=== PATIENT | male | born 1965 | race Caucasian/White ===

== ENCOUNTER → 2020-07-27 | Outpatient (CLI) | payer OTHER | END | disposition home or self-care (01) | LOC: LABPAT 13:22 | PROVIDERS: ATTEND Surgery Plastic and Reconstructive Surgery | DX: Z01.818 Encounter for other preprocedural examination (principal) | CPT/HCPCS: 93005 ==

== ENCOUNTER 2020-09-11 16:20 | Inpatient (IN) | payer OTHER ==
[2020-09-11] MEDS ORDERED: SODIUM CHLORIDE 0.9% 500 ML 500 ML IV ONE (16:44)
[2020-09-11] MEDS ORDERED: SODIUM CHLORIDE 0.9% 1,000 ML IV ONE ×2 (16:44→17:14)
[2020-09-11] MEDS ORDERED: VANCOMYCIN IV PER PHARMACY 1 EACH MISC MISCELLANE PRN (16:45)
[2020-09-11] MEDS ORDERED: PIPERACILLIN-TAZOBACTAM 3.375 GM in SODIUM CHLORIDE 0.9% 100 ML IVPB SCH (16:45)
[2020-09-11] MEDS ORDERED: PIPERACILLIN-TAZOBACTAM 3.375 GM in SODIUM CHLORIDE 0.9% 100 ML IVPB ONE (17:00)
[2020-09-11 17:06] LABS: Basophils # (A) 0.2 k/uL (0-0.2); Basophils % (A) 1 %; Eosinophils # (A) 0.4 k/uL (0-0.7); Eosinophils % (A) 2 %; HCT 40.9 % (39.0-53.0); HGB 13.9 gm/dL (13.0-17.5); Lymphocytes # (A) 1.4 k/uL (1.0-4.8); Lymphocytes % (A) 6 %; MCH 29.9 pg (25.0-35.0); MCHC 33.9 g/dL (31.0-37.0); MCV 88.3 fL (80.0-100.0); Mean Platelet Volume 6.5; Monocytes % (A) 5 %; Neutrophils % (A) 86 %; Platelet Count 451 k/uL (150-450); RBC 4.63 m/uL (4.30-5.90); RDW 11.7 % (11.5-15.5); WBC 22.2 k/uL (3.8-10.6)
--- NOTE | 2020-09-11 17:14 | ED ---
Lower Extremity Injury HPI - General Chief Complaint: Extremity Injury, Lower Stated Complaint: foot injury Time Seen by Provider: 09/11/20 16:35 Source: patient Mode of arrival: ambulatory Limitations: no limitations - History of Present Illness Initial Comments: 55-year-old newly diagnosed diabetic presenting to the ER today for chief complaint of right great toe pain. Patient states 2 weeks ago he stubbed his toe he states he is pretty sure he broke it. Patient states a week later he noticed it was black. He states the past week the blackness has been increasing it's been draining and has a very spell swelling on her. Patient states is also had body aches and chills. Patient was unsure if he had a fever remaining review of systems negative upon arrival patient does not appear in distress nor toxic but is febrile with an elevated heart rate. - Related Data Home Medications Medication Instructions Recorded Confirmed Atorvastatin Calcium [Lipitor] 20 mg PO HS 09/11/20 09/11/20 Multivitamins, Thera [Multivitamin 1 tab PO DAILY 09/11/20 09/11/20 (formulary)] Vitamin B-12 (Unknown Strength) 1 tab PO DAILY 09/11/20 09/11/20 Zinc 50 mg PO DAILY 09/11/20 09/11/20 Allergies Allergy/AdvReac Type Severity Reaction Status Date / Time Latex, Natural Rubber Allergy Swelling Verified 09/11/20 17:46 Review of Systems ROS Statement: Those systems with pertinent positive or pertinent negative responses have been documented in the HPI. ROS Other: All systems not noted in ROS Statement are negative. Past Medical History Past Medical History: Diabetes Mellitus, Hyperlipidemia History of Any Multi-Drug Resistant Organisms: None Reported Past Surgical History: Ear Surgery, Hernia Repair Past Psychological History: No Psychological Hx Reported Smoking Status: Former smoker Past Alcohol Use History: Occasional Past Drug Use History: None Reported General Exam - General Exam Comments Initial Comments: General: The patient is awake and alert, in no distress Eye: +3 mm pupils are equal, round and reactive to light, extra-ocular movements are intact. No nystagmus. There is normal conjunctiva bilaterally. No signs of icterus. Ears, nose, mouth and throat: There are moist mucous membranes and no oral lesions. Neck: The neck is supple, there is no tenderness or JVD. Cardiovascular: There is a regular rate and rhythm. No murmur, rub or gallop is appreciated. Respiratory: Lungs are clear to auscultation, respirations are non-labored, breath sounds are equal. No wheezes, stridor, rales, or rhonchi. Gastrointestinal: Soft, non-distended, non-tender abdomen without masses or organomegaly noted. There is no rebound or guarding present Musculoskeletal: Normal ROM, no tenderness. Strength 5/5. Sensation intact. Radial and DP pulses equal bilaterally 2+. Neurological: A&O x 3. CN II-XII intact grossly, There are no obvious motor or sensory deficits. Coordination appears grossly intact. Speech is normal. Skin: Skin is warm and dry. right great toe is black, foul smelling, wet, dif fuse redness of adjacent foot Psychiatric: Cooperative, appropriate mood & affect, normal judgment. Limitations: no limitations Course Vital Signs 09/11/20 16:31 Temperature 101.9 F H Pulse Rate 110 H Respiratory 18 Rate Blood Pressure 194/91 O2 Sat by Pulse 96 Oximetry Medical Decision Making - Medical Decision Making 55yo with obvious wet gangrene. XR consistent with necrosis, xr inconclusive for osteomyelitis although this is suspected given clinical appearance. Pt agreeable to admission for IV antibiotics. Vascular and infectious disease on consult. Zosyn and vancomycin running. Dr. Saenz agreeable to care plan. Ventricular rate 109 bpm, IA interval 132 ms, QRS ration 80 ms, QT/QTC 3:30/444 ms. Sinus tachycardia premature supraventricular complexes. No ST elevation or depression is appreciated. - Lab Data Result diagrams: 09/11/20 17:00 09/11/20 17:50 Lab Results 09/11/20 09/11/20 09/11/20 Range/Units 17:00 17:50 Unknown WBC 22.2 H (3.8-10.6) k/uL RBC 4.63 (4.30-5.90) m/uL Hgb 13.9 (13.0-17.5) gm/dL Hct 40.9 (39.0-53.0) % MCV 88.3 (80.0-100.0) fL MCH 29.9 (25.0-35.0) pg MCHC 33.9 (31.0-37.0) g/dL RDW 11.7 (11.5-15.5) % Plt Count 451 H (150-450) k/uL MPV 6.5 Neutrophils % 86 % Lymphocytes % 6 % Monocytes % 5 % Eosinophils % 2 % Basophils % 1 % Neutrophils # 19.0 H (1.3-7.7) k/uL Lymphocytes # 1.4 (1.0-4.8) k/uL Monocytes # 1.0 (0-1.0) k/uL Eosinophils # 0.4 (0-0.7) k/uL Basophils # 0.2 (0-0.2) k/uL Sodium 128 L (137-145) mmol/L Potassium 5.0 (3.5-5.1) mmol/L Chloride 97 L (98-107) mmol/L Carbon Dioxide 25 (22-30) mmol/L Anion Gap 6 mmol/L BUN 17 (9-20) mg/dL Creatinine 0.72 (0.66-1.25) mg/dL Est GFR (CKD-EPI)AfAm >90 (>60 ml/min/1.73 sqM) Est GFR (CKD-EPI)NonAf >90 (>60 ml/min/1.73 sqM) Glucose 323 H (74-99) mg/dL Plasma Lactic Acid Lee 1.0 (0.7-2.0) mmol/L Calcium 7.9 L (8.4-10.2) mg/dL Magnesium 1.8 (1.6-2.3) mg/dL Total Bilirubin 0.6 (0.2-1.3) mg/dL AST 25 (17-59) U/L ALT 31 (4-49) U/L Alkaline Phosphatase 93 (38-126) U/L Total Protein 6.4 (6.3-8.2) g/dL Albumin 3.1 L (3.5-5.0) g/dL Disposition Clinical Impression: Gangrene, Fever, Leukocytosis Disposition: ADMITTED IP TO THIS [facility] Condition: Stable Is patient prescribed a controlled substance at d/c from ED?: No Referrals: Leonel Rm DO [Primary Care Provider] - 1-2 days Time of Disposition: 18:10 Decision to Admit Reason: Admit from EC Decision Date: 09/11/20 Decision Time: 18:10
--- NOTE | 2020-09-11 17:21 | XR ---
EXAMINATION TYPE: XR foot complete RT gangrene first digit DATE OF EXAM: 09/11/2020 COMPARISON: NONE HISTORY: Gangrene first digit TECHNIQUE: 3 views FINDINGS: There is soft tissue air at the distal phalanx of the big toe. I see no definite bone destr uction. Metatarsals are intact. There is Achilles calcaneal spurring. There is soft tissue swelling o f the forefoot. IMPRESSION: Soft tissue air and soft tissue swelling consistent with necrosis. No definite sign of os teomyelitis.
[2020-09-11] MEDS ORDERED: VANCOMYCIN 1,750 MG in SODIUM CHLORIDE 0.9% 500 ML 500 ML IVPB ONE (17:30)
[2020-09-11] MEDS ORDERED: NALOXONE 0.4 MG/ML 1 ML VIAL IV PRN (17:33)
[2020-09-11] MEDS ORDERED: MORPHINE SULFATE 4 MG/ML SYRINGE IV PRN (17:33)
[2020-09-11] MEDS: SODIUM CHLORIDE 0.9% 1,000 ML IV SCH ×2 (17:49→23:54)
[2020-09-11] MEDS: ACETAMINOPHEN TAB 325 MG TAB PO PRN ×2 (17:53→23:59)
[2020-09-11 18:07] LABS: ALT 31 U/L (4-49); AST 25 U/L (17-59); African American GFR (CKD) >90 (>60 ml/min/1.73 sqM); Albumin 3.1 g/dL (3.5-5.0); Alkaline Phosphatase 93 U/L (38-126); Anion Gap 6 mmol/L; Blood Urea Nitrogen 17 mg/dL (9-20); Calcium 7.9 mg/dL (8.4-10.2); Carbon Dioxide 25 mmol/L (22-30); Chloride 97 mmol/L (98-107); Glucose 323 mg/dL (74-99); Magnesium 1.8 mg/dL (1.6-2.3); Non-African American GFR(CKD) >90 (>60 ml/min/1.73 sqM); Sodium 128 mmol/L (137-145); Total Bilirubin 0.6 mg/dL (0.2-1.3); Total Protein 6.4 g/dL (6.3-8.2)
[2020-09-11] MEDS ORDERED: INSULIN REGULAR 100 UNIT/ML VIAL SQ ONE (18:08)
[2020-09-11 19:04] LABS: Glucose,Whole Blood 291 mg/dL (75-99)
[2020-09-11] MEDS: ATORVASTATIN 20 MG TAB PO SCH (21:58)
[2020-09-11] MEDS: HEPARIN SODIUM,PORCINE 5,000 UNIT/ML 1 ML VIAL SQ SCH (22:08)
[2020-09-11] MEDS: FAMOTIDINE 20 MG/2 ML VIAL IV SCH (22:08)
[2020-09-11] MEDS: PIPERACILLIN-TAZOBACTAM 3.375 GM in SODIUM CHLORIDE 0.9% 100 ML IVPB SCH (23:53)
[2020-09-12] MEDS: VANCOMYCIN 1,750 MG in SODIUM CHLORIDE 0.9% 500 ML 500 ML IVPB SCH ×2 (04:26→10:29)
[2020-09-12 07:14] LABS: Basophils # (A) 0.1 k/uL (0-0.2); Basophils % (A) 0 %; Eosinophils # (A) 0.2 k/uL (0-0.7); Eosinophils % (A) 1 %; HCT 36.8 % (39.0-53.0); HGB 12.3 gm/dL (13.0-17.5); Lymphocytes # (A) 1.8 k/uL (1.0-4.8); Lymphocytes % (A) 9 %; MCH 30.1 pg (25.0-35.0); MCHC 33.4 g/dL (31.0-37.0); MCV 90.1 fL (80.0-100.0); Mean Platelet Volume 6.5; Monocytes # (A) 1.1 k/uL (0-1.0); Monocytes % (A) 6 %; Neutrophils # (A) 16.3 k/uL (1.3-7.7); Neutrophils % (A) 83 %; Platelet Count 382 k/uL (150-450); RBC 4.08 m/uL (4.30-5.90); RDW 11.7 % (11.5-15.5); WBC 19.7 k/uL (3.8-10.6)
[2020-09-12] MEDS: HEPARIN SODIUM,PORCINE 5,000 UNIT/ML 1 ML VIAL SQ SCH ×2 (07:54→21:41)
[2020-09-12] MEDS: FAMOTIDINE 20 MG/2 ML VIAL IV SCH (07:55)
[2020-09-12] MEDS: CYANOCOBALAMIN 500 MCG TAB PO SCH (07:55)
[2020-09-12] MEDS: PIPERACILLIN-TAZOBACTAM 3.375 GM in SODIUM CHLORIDE 0.9% 100 ML IVPB SCH ×2 (07:56→15:12)
[2020-09-12] MEDS: SODIUM CHLORIDE 0.9% 1,000 ML IV SCH ×2 (07:58→14:13)
[2020-09-12 09:58] LABS: African American GFR (CKD) 112.6 (60.0-200.0); Anion Gap 9.4 mmol/L (4.00-12.00); BUN/Creat Ratio 15.56 Ratio (12.00-20.00); Calcium 8.2 mg/dL (8.7-10.3); Carbon Dioxide 27.6 mmol/L (21.6-31.8); Non-African American GFR(CKD) 97.2 (60.0-200.0); Potassium 4.6 mmol/L (3.5-5.5)
[2020-09-12] MEDS: HYDROcodone/APAP 5-325MG 1 EACH TAB PO PRN (10:30)
[2020-09-12] MEDS ORDERED: ALPRAZolam 0.25 MG TAB PO PRN (13:58)
[2020-09-12] MEDS ORDERED: TEMAZEPAM 15 MG CAP PO PRN (13:58)
[2020-09-12] MEDS ORDERED: HYDROmorphone 0.5 MG/0.5 ML SYRINGE IVP PRN (13:58)
[2020-09-12] MEDS: KETOROLAC 15 MG/ML 1 ML VIAL IVP PRN ×2 (14:29→21:40)
[2020-09-12 14:58] LABS: Appearance,Urine Clear (Clear); Bilirubin,Urine Negative (Negative); Blood,Urine Negative (Negative); Color,Urine Light Yellow; Glucose,Urine (UA) 4+ (Negative); Ketones,Urine 1+ (Negative); Leukocyte Esterase,Urine Negative (Negative); Nitrite,Urine Negative (Negative); Protein,Urine Negative (Negative); Specific Gravity,Urine 1.015 (1.001-1.035); Urobilinogen,Urine <2.0 mg/dL (<2.0)
--- NOTE | 2020-09-12 15:24 | HP ---
HISTORY AND PHYSICAL DATE OF SERVICE: 09/12/2020 CHIEF COMPLAINT: Pain and swelling of the right big toe. HISTORY OF PRESENT ILLNESS: This 55-year-old gentleman with a past medical history of diabetes mellitus, hyperlipidemia, history of ear surgery, hernia repair, being followed by Dr. Leonel Rm in the outpatient setting, was not feeling well for the last one month. About a month ago, the patient stubbed his right great toe while doing some outside yard work, and the patient thought that the toe was broken, but subsequently the patient noticed some black discoloration with foul-smelling discharge. Because of the increasing difficulties, the patient came to [facility] and was admitted for further evaluation and treatment. X-rays show no evidence of any fractures at this time. The patient also had elevated white count. The patient has not taken any antibiotics so far. Evaluation by Vascular Surgery as well as Infectious Disease is ongoing at this time. There is no history of any fever, rigor or chills. No history of headache, loss of consciousness, seizures. PAST MEDICAL HISTORY: Diabetes mellitus, hyperlipidemia, history of ear surgery, history of hernia surgery. MEDICATIONS: Zinc, multivitamins and Lipitor. ALLERGIES: LATEX. FAMILY HISTORY: No history of heart disease or strokes in the family. SOCIAL HISTORY: Occasional alcohol intake and history of previous smoking. REVIEW OF SYSTEMS: ENT: No diminished hearing. No diminished vision. CARDIOVASCULAR SYSTEM: No angina, palpitations. RESPIRATORY SYSTEM: No cough, hemoptysis. GI: No nausea, vomiting. : No dysuria or retention. NERVOUS SYSTEM: No numbness, weakness. ALLERGY/IMMUNOLOGY: No asthma, hayfever. MUSCULOSKELETAL: As mentioned earlier. HEMATOLOGY/ONCOLOGY: No history of anemia. ENDOCRINE: Diabetes mellitus. CONSTITUTIONAL: As mentioned earlier. DERMATOLOGY: As mentioned earlier. RHEUMATOLOGY: Negative. PSYCHIATRY: As mentioned earlier. PHYSICAL EXAMINATION: Patient alert and oriented x3. Pulse 90, blood pressure is 153/78, respiration 18, temperature 98.1, pulse ox 96% on room air. HEENT: Conjunctivae normal. Oral mucosa moist. NECK: No jugular venous distention. No carotid bruit. No lymph node enlargement. CARDIOVASCULAR SYSTEM: S1, S2 muffled. No S3. No S4. RESPIRATORY SYSTEM: Breath sounds diminished at the bases. No rhonchi. No crackles. ABDOMEN: Soft, non-tender. No mass palpable. LEGS: Right foot with significant erythema, swelling and gangrenous changes, foul- smelling, indicative of diabetic gangrene. The pulses are diminished bilaterally. NERVOUS SYSTEM: Higher functions as mentioned earlier. Moves all 4 limbs. No focal motor deficit. LYMPHATICS: No lymph node palpable in neck, axillae or groin. SKIN: As mentioned earlier. JOINTS: No active deforming arthropathy. LABS: Labs at this time show WBC 22.2, platelets are 451. Sodium 128, potassium 5 and glucose 323, 291, 258. ASSESSMENT: 1. 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 2. Increased white count. 3. Increased platelets. 4. Hyponatremia. 5. History of diabetes mellitus, type 2. 6. Hyperlipidemia. 7. History of hernia repair. 8. Remote history of nicotine dependence. 9. FULL CODE. RECOMMENDATIONS AND DISCUSSION: In this 55-year-old gentleman who presented with multiple complex medical issues, we will monitor the patient closely, continue the current medications, continue with symptomatic treatment. Broad-spectrum IV antibiotics have been initiated. Obtain the cultures. Surgical and Infectious disease evaluations. I would also recommend initiating Lantus and better control of the diabetes mellitus. The hemoglobin A1c is unknown at this time. Will resume the home medication. Prognosis guarded. DVT prophylaxis. See orders for further details. Further recommendations to follow. A copy of this dictation is being forwarded to Dr. Rm, who is the primary physician. MMODL / IJN: [id number] /
[2020-09-12] MEDS: AMPICILLIN-SULBACTAM 3 GM in SODIUM CHLORIDE 0.9% 100 ML IVPB SCH (16:44)
--- NOTE | 2020-09-12 17:20 | P.GSCN ---
History of Present Illness Consult date: 09/12/20 History of present illness: Patient is a 55-year-old male who has a new onset diagnosis of diabetes very recently. He has not seen a doctor in the past under any regularity, but has recently for preoperative clearance for hernia. In the past month or so he began having issues after stubbing his right great toe while woodcutting. He states that it initially improved and he thought there was going to be further improvement but then realized the wound was worsening and turning black. He had pain with this. He denies any fevers, chills, nausea, vomiting or issues otherwise currently. Of note, also in his preoperative workup and evaluation for this outpatient hernia repair, he had an EKG which showed some abnormalities which then instigated an echo and stress test that were scheduled for the near future. He has not had these done yet. He denies any chest pains with work. He is able to perform activity without any chest pains or shortness of breath Past Medical History Past Medical History: Diabetes Mellitus, Hyperlipidemia History of Any Multi-Drug Resistant Organisms: None Reported Past Surgical History: Ear Surgery, Hernia Repair Additional Past Surgical History / Comment(s): 3 left ear surgeries (tubes put in and eardrum repair) Past Anesthesia/Blood Transfusion Reactions: No Reported Reaction Past Psychological History: No Psychological Hx Reported Smoking Status: Former smoker Past Alcohol Use History: Occasional Past Drug Use History: None Reported Medications and Allergies Home Medications Medication Instructions Recorded Confirmed Type Atorvastatin Calcium [Lipitor] 20 mg PO HS 09/11/20 09/11/20 History Multivitamins, Thera [Multivitamin 1 tab PO DAILY 09/11/20 09/11/20 History (formulary)] Vitamin B-12 (Unknown Strength) 1 tab PO DAILY 09/11/20 09/11/20 History Zinc 50 mg PO DAILY 09/11/20 09/11/20 History Allergies Allergy/AdvReac Type Severity Reaction Status Date / Time Latex, Natural Rubber Allergy Swelling Verified 09/11/20 17:46 Surgical - Exam Vital Signs Temp Pulse Resp BP Pulse Ox 101.9 F H 110 H 18 194/91 96 09/11/20 16:31 09/11/20 16:31 09/11/20 16:31 09/11/20 16:31 09/11/20 16:31 Gen. is a pleasant cooperative male in no acute distress. HEENT is normocephalic, atraumatic, extraocular motion intact. Heart is regular in rate and rhythm at this time. Lungs are clear bilaterally. Abdomen is soft, non tender and nondistended, obese, some shifting dullness. Extremities show no clubbing, cyanosis or edema. His right great toe is bulbous with areas of gangrene and drainage. He maintains palpable radial, femoral, dorsalis pedis and posterior tibial pulses bilaterally. Normal mood and affect. Cranial nerves II through XII grossly intact Results X-rays reviewed. - Labs 09/12/20 06:32 09/12/20 06:32 Abnormal Lab Results - Last 24 Hours (Table) 09/11/20 09/11/20 09/12/20 Range/Units 17:50 19:02 06:32 WBC 19.7 H (3.8-10.6) k/uL RBC 4.08 L (4.30-5.90) m/uL Hgb 12.3 L (13.0-17.5) gm/dL Hct 36.8 L (39.0-53.0) % Neutrophils # 16.3 H (1.3-7.7) k/uL Monocytes # 1.1 H (0-1.0) k/uL Sodium 128 L (137-145) mmol/L Chloride 97 L (98-107) mmol/L Glucose 323 H (74-99) mg/dL POC Glucose (mg/dL) 291 H (75-99) mg/dL Calcium 7.9 L (8.4-10.2) mg/dL Albumin 3.1 L (3.5-5.0) g/dL Urine Glucose (UA) (Negative) Urine Ketones (Negative) 09/12/20 09/12/20 Range/Units 06:32 14:45 WBC (3.8-10.6) k/uL RBC (4.30-5.90) m/uL Hgb (13.0-17.5) gm/dL Hct (39.0-53.0) % Neutrophils # (1.3-7.7) k/uL Monocytes # (0-1.0) k/uL Sodium 133 L (137-145) mmol/L Chloride (98-107) mmol/L Glucose 258 H (74-99) mg/dL POC Glucose (mg/dL) (75-99) mg/dL Calcium 8.2 L (8.4-10.2) mg/dL Albumin (3.5-5.0) g/dL Urine Glucose (UA) 4+ H (Negative) Urine Ketones 1+ H (Negative) Diabetes panel 09/11/20 09/12/20 Range/Units 17:50 06:32 Sodium 128 L 133 L (137-145) mmol/L Potassium 5.0 4.6 (3.5-5.1) mmol/L Chloride 97 L 96 (98-107) mmol/L Carbon Dioxide 25 27.6 (22-30) mmol/L BUN 17 14.0 (9-20) mg/dL Creatinine 0.72 0.9 (0.66-1.25) mg/dL Glucose 323 H 258 H (74-99) mg/dL Calcium 7.9 L 8.2 L (8.4-10.2) mg/dL AST 25 (17-59) U/L ALT 31 (4-49) U/L Alkaline Phosphatase 93 (38-126) U/L Total Protein 6.4 (6.3-8.2) g/dL Albumin 3.1 L (3.5-5.0) g/dL Calcium panel 09/11/20 09/12/20 Range/Units 17:50 06:32 Calcium 7.9 L 8.2 L (8.4-10.2) mg/dL Albumin 3.1 L (3.5-5.0) g/dL Pituitary panel 09/11/20 09/12/20 Range/Units 17:50 06:32 Sodium 128 L 133 L (137-145) mmol/L Potassium 5.0 4.6 (3.5-5.1) mmol/L Chloride 97 L 96 (98-107) mmol/L Carbon Dioxide 25 27.6 (22-30) mmol/L BUN 17 14.0 (9-20) mg/dL Creatinine 0.72 0.9 (0.66-1.25) mg/dL Glucose 323 H 258 H (74-99) mg/dL Calcium 7.9 L 8.2 L (8.4-10.2) mg/dL Adrenal panel 09/11/20 09/12/20 Range/Units 17:50 06:32 Sodium 128 L 133 L (137-145) mmol/L Potassium 5.0 4.6 (3.5-5.1) mmol/L Chloride 97 L 96 (98-107) mmol/L Carbon Dioxide 25 27.6 (22-30) mmol/L BUN 17 14.0 (9-20) mg/dL Creatinine 0.72 0.9 (0.66-1.25) mg/dL Glucose 323 H 258 H (74-99) mg/dL Calcium 7.9 L 8.2 L (8.4-10.2) mg/dL Total Bilirubin 0.6 (0.2-1.3) mg/dL AST 25 (17-59) U/L ALT 31 (4-49) U/L Alkaline Phosphatase 93 (38-126) U/L Total Protein 6.4 (6.3-8.2) g/dL Albumin 3.1 L (3.5-5.0) g/dL Assessment and Plan Assessment: #1 right great toe infection #2 right great toe gangrene #3 diabetes #4 reportedly abnormal EKG previously Plan: The patient has recently eaten and given his overall picture and clinical stability we'll plan to make him nothing by mouth after midnight and amputate great toe tomorrow morning. He is to maintain antibiotics. We will obtain a deep space culture at that time. Also we've asked that cardiology evaluate the patient, given his recent cardiac issues we will plan to perform the surgery under monitored anesthesia care with a local digital block rather than general anesthesia. Risks and benefits were discussed with the patient. He seemingly understands and is willing to proceed as such. All questions are answered.
[2020-09-12 17:34] LABS: Glucose,Whole Blood 320 mg/dL (75-99)
[2020-09-12] MEDS: INSULIN ASPART (NovoLOG) 100 UNIT/ML VIAL SQ SCH ×2 (17:43→21:41)
[2020-09-12 19:39] LABS: Glucose,Whole Blood 445 mg/dL (75-99)
[2020-09-12] MEDS ORDERED: INSULIN ASPART (NovoLOG) 100 UNIT/ML VIAL SQ ONE (21:09)
--- NOTE | 2020-09-12 21:12 | CONS ---
CONSULTATION DATE OF SERVICE: 09/12/2020 REASON FOR CONSULTATION: Right big toe diabetic foot infection. HISTORY OF PRESENT ILLNESS: The patient is a 55-year-old male with a past medical history significant for diabetes mellitus. This patient apparently stubbed his right big toe when he was cutting wood about 2 weeks ago. The patient has been using some bandages at home; however, for the last few days the patient noticed his toe turning black. The patient does have underlying diabetic neuropathy; hence denies significant pain to the toe. The patient did have mild foul-smelling drainage from it. The patient denies high-grade fever. The patient mentioned he was on some oral antibiotic; however, he was not sure about the name. But that was without any improvement. With these symptoms, the patient presented to the hospital. On arrival in the ER the patient did have a fever of 101.9 degrees Fahrenheit. The patient was tachycardic and he had a white count of 22.2. The patient's kidney function showed a creatinine of 0.9. Liver enzymes were normal. He did have a UA that was negative. The patient had x-rays of the right foot big toe which showed soft tissue air and soft tissue swelling consistent with necrosis. No definite sign of osteomyelitis. The patient was started on vancomycin and Zosyn and admitted to the hospital. Infectious Disease was consulted for further management of antibiotic therapy. REVIEW OF SYSTEMS: Positive points have been mentioned in the HPI. Rest of the systems negative. PAST MEDICAL HISTORY: Diabetes mellitus, hyperlipidemia. PAST SURGICAL HISTORY: Hernia repair. SOCIAL HISTORY: Remote history of smoking. Occasionally drinks. No drug use. FAMILY HISTORY: No pertinent findings were noted. ALLERGIES: LATEX and NATURAL RUBBER. MEDICATIONS: The patient is currently on Tylenol, [place], Xanax, Lipitor, Pepcid, heparin, Dilaudid, Toradol, vancomycin, Pharmacy to dose, Zosyn, Restoril and zinc sulfate. PHYSICAL EXAMINATION: Blood pressure 153/78, pulse of 90, temperature 98.1. T-max 101. He is 96% on room air. General description is a middle-aged male lying in bed in no distress. No tachypnea or accessory muscle of respiration use. HEENT: Examination shows no pallor or scleral icterus. Oral mucous membrane is dry. No pharyngeal erythema or thrush. NECK: Trachea is central. No thyromegaly. LUNGS: Unlabored breathing. Clear to auscultation anteriorly. No wheeze or crackle. HEART: S1, S2. Regular rate and rhythm. No added sound. ABDOMEN: Soft. No tenderness. No guarding or rigidity. EXTREMITIES: No edema of the feet. Examination of the big toe on the right shows gangrenous changes with black swelling, minimal redness and mild foul-smelling. NEUROLOGICAL: Patient is awake, alert, oriented x3. Mood and affect normal. LABS: Hemoglobin is 12.3, white count 19.7. Admission white count was 22.2 with a BUN of 14, creatinine 0.90. Electrolytes have been normal. Urine is negative. X-ray report as mentioned above. DIAGNOSTIC IMPRESSION AND PLAN: Patient admitted to hospital with sepsis in this patient who did have fever, elevated white count, tachycardia. Source is right diabetic foot infection that started as a trauma 2 weeks ago, now with evidence of wet gangrene. Will need to cover for the polymicrobial esvin usually associated with these levels of infection in this patient failing outpatient oral antibiotic therapy. PLAN: 1. Discontinue the Zosyn and vancomycin to decrease risk of nephrotoxicity. 2. We will start the patient on Unasyn 3 grams q.6 hours. 3. Await vascular surgery evaluation for debridement and deep cultures, both aerobic and anaerobic. 4. Will follow his clinical condition and culture to further adjust medication if needed. Thank you for this consultation. Will follow this patient along with you. MMODL / IJN: [id number] /
[2020-09-12] MEDS: FAMOTIDINE 20 MG TAB PO SCH (21:41)
[2020-09-12] MEDS: ATORVASTATIN 20 MG TAB PO SCH (21:41)
[2020-09-13] MEDS: AMPICILLIN-SULBACTAM 3 GM in SODIUM CHLORIDE 0.9% 100 ML IVPB SCH ×4 (00:10→17:36)
[2020-09-13] MEDS: SODIUM CHLORIDE 0.9% 1,000 ML IV SCH ×3 (00:13→17:36)
[2020-09-13 01:24] LABS: Hemoglobin A1C 12.3 % (4.0-6.0)
[2020-09-13] MEDS: ACETAMINOPHEN TAB 325 MG TAB PO PRN ×2 (04:57→11:09)
[2020-09-13] MEDS: KETOROLAC 15 MG/ML 1 ML VIAL IVP PRN (05:32)
[2020-09-13 06:01] LABS: Basophils # (A) 0.1 k/uL (0-0.2); Basophils % (A) 0 %; Eosinophils # (A) 0.3 k/uL (0-0.7); Eosinophils % (A) 1 %; HCT 35.9 % (39.0-53.0); HGB 11.9 gm/dL (13.0-17.5); Lymphocytes # (A) 1.5 k/uL (1.0-4.8); Lymphocytes % (A) 8 %; MCH 29.1 pg (25.0-35.0); MCHC 33.1 g/dL (31.0-37.0); MCV 87.8 fL (80.0-100.0); Mean Platelet Volume 6.6; Monocytes % (A) 5 %; Neutrophils % (A) 83 %; Platelet Count 394 k/uL (150-450); RBC 4.09 m/uL (4.30-5.90); RDW 11.6 % (11.5-15.5)
[2020-09-13 07:14] LABS: Glucose,Whole Blood 250 mg/dL (75-99)
[2020-09-13] MEDS: INSULIN ASPART (NovoLOG) 100 UNIT/ML VIAL SQ SCH ×4 (08:16→21:52)
[2020-09-13] MEDS ORDERED: LIDOCAINE 1% INJ 10MG/ML (20 ML MDV) SQ ONE ×2 (09:13)
[2020-09-13] MEDS ORDERED: PROPOFOL 10 MG/ML 20 ML VIAL IV ONE (09:15)
[2020-09-13] MEDS ORDERED: SODIUM CHLORIDE 0.9% 1,000 ML IV ONE ×2 (09:15→10:45)
[2020-09-13] MEDS ORDERED: fentaNYL (PF) 50 MCG/ML 2 ML AMP ONE (09:15)
[2020-09-13] MEDS ORDERED: MIDAZOLAM 2 MG/2 ML VIAL ONE (09:15)
[2020-09-13] MEDS ORDERED: KETAMINE 10 MG/ML 20 ML VIAL ONE (09:15)
[2020-09-13] MEDS ORDERED: VANCOMYCIN TROUGH DUE 1 EACH MISC MISCELLANE ONE (10:00)
[2020-09-13 10:17] LABS: African American GFR (CKD) 112.6 (60.0-200.0); Anion Gap 5.8 mmol/L (4.00-12.00); BUN/Creat Ratio 13.33 Ratio (12.00-20.00); Calcium 8.1 mg/dL (8.7-10.3); Carbon Dioxide 30.2 mmol/L (21.6-31.8); Non-African American GFR(CKD) 97.2 (60.0-200.0); Potassium 4.2 mmol/L (3.5-5.5)
[2020-09-13 10:20] LABS: Glucose,Whole Blood 231 mg/dL (75-99)
[2020-09-13] MEDS: FAMOTIDINE 20 MG TAB PO SCH ×2 (11:09→20:19)
[2020-09-13] MEDS: HEPARIN SODIUM,PORCINE 5,000 UNIT/ML 1 ML VIAL SQ SCH ×2 (11:09→20:20)
[2020-09-13] MEDS: ZINC SULFATE 220 MG CAP PO SCH (11:10)
[2020-09-13] MEDS: CYANOCOBALAMIN 500 MCG TAB PO SCH (11:10)
[2020-09-13] MEDS: MULTIVITAMINS, THERA 1 EACH TAB PO SCH (11:10)
--- NOTE | 2020-09-13 11:25 | P.CRDCN ---
History of Present Illness Consult date: 09/13/20 Requesting physician: Emily Walker Reason for Consult (text): "surgery" Chief complaint: infected right great toe History of present illness: A pleasant 55-year-old gentleman with history of diabetes who was recently seen in our office by Dr. Martínez for preoperative evaluation prior to undergoing hernia surgery with Dr. Lopez. A few weeks ago he stubbed his toe O working outside. He presented to the emergency department yesterday due to worsening pain and symptoms of infection with foul-smelling drainage. Breasts see the patient in consultation for preoperative evaluation. EKG on admission showed sinus tachycardia with immature atrial contractions. The patient did undergo r ight toe amputation this morning with a block and conscious sedation. He is feeling well postoperatively. Blood pressure has been elevated during admission but has been well controlled in the 120s to 140 at home. He is currently afebrile but did have a temperature of 101.9 on admission. Recent laboratory values showed a white blood cell count 18,000. Hemoglobin 11.9 and normal renal function. Glucose has been elevated. He's had no points of chest discomfort, shortness of breath, cough, lightheadedness, dizziness, palpitations or lower extremity edema. He has a wound VAC in place to the surgical site. He is anticipating discharge home on Thursday. She is currently scheduled for stress test and echocardiogram in our office. Past Medical History Past Medical History: Diabetes Mellitus, Hyperlipidemia History of Any Multi-Drug Resistant Organisms: None Reported Past Surgical History: Ear Surgery, Hernia Repair Additional Past Surgical History / Comment(s): 3 left ear surgeries (tubes put in and eardrum repair) Past Anesthesia/Blood Transfusion Reactions: No Reported Reaction Past Psychological History: No Psychological Hx Reported Smoking Status: Former smoker Past Alcohol Use History: Occasional Past Drug Use History: None Reported Medications and Allergies Home Medications Medication Instructions Recorded Confirmed Type Atorvastatin Calcium [Lipitor] 20 mg PO HS 09/11/20 09/11/20 History Multivitamins, Thera [Multivitamin 1 tab PO DAILY 09/11/20 09/11/20 History (formulary)] Vitamin B-12 (Unknown Strength) 1 tab PO DAILY 09/11/20 09/11/20 History Zinc 50 mg PO DAILY 09/11/20 09/11/20 History Allergies Allergy/AdvReac Type Severity Reaction Status Date / Time Latex, Natural Rubber Allergy Swelling Verified 09/11/20 17:46 Physical Exam Vitals: Vital Signs Temp Pulse Pulse Resp BP BP Pulse Ox 09/13/20 11:14 98.4 F 88 16 173/82 96 09/13/20 10:43 82 16 147/62 97 09/13/20 10:30 83 16 96 09/13/20 10:12 97.6 F 85 16 144/69 95 09/13/20 05:37 99.5 F 90 09/13/20 04:50 98.1 F 94 16 155/80 95 09/12/20 19:11 99.2 F 99 16 168/81 97 09/12/20 13:21 98.1 F 90 18 153/78 96 Intake and Output 09/12/20 09/13/20 09/13/20 22:59 06:59 14:59 Intake Total 420 825 Output Total 40 Balance 420 785 Intake: IV 825 Oral 420 Output: Estimated Blood Loss 40 Other: Voiding Method Toilet Toilet # Voids 1 Weight 102.512 kg PHYSICAL EXAMINATION: This is a -year-old in no apparent distress at the time of my examination. VITAL SIGNS: Blood pressure , heart rate , respirations , temp . Patient is % on . HEENT: Head is atraumatic, normocephalic. Pupils are equal, round. Sclerae anicteric. Conjunctivae are clear. Mucous membranes of the mouth are moist. Neck is supple. There is no elevated jugular venous pressure. No carotid bruit is heard. CHEST EXAMINATION: Clear to auscultation bilaterally. No wheezes rales or rh onchi. Respirations even and nonlabored. HEART EXAMINATION: Heart regular, positive S1 and S2. No S3. No S4. No clicks, rubs or murmurs. ABDOMEN: Soft, nontender. Bowel sounds are heard. No organomegaly noted. EXTREMITIES: 2+ peripheral pulses with wound VAC noted to site of right great to e amputation with erythema noted in the surrounding toes and foot.. NEUROLOGIC EXAMINATION: Patient is awake, alert and oriented x3. Results 09/13/20 05:42 09/13/20 05:42 CBC 09/13/20 Range/Units 05:42 WBC 18.0 H (3.8-10.6) k/uL RBC 4.09 L (4.30-5.90) m/uL Hgb 11.9 L (13.0-17.5) gm/dL Hct 35.9 L (39.0-53.0) % Plt Count 394 (150-450) k/uL Comprehensive Metabolic Panel 09/13/20 Range/Units 05:42 Sodium 132 L (135-145) mmol/L Potassium 4.2 (3.5-5.5) mmol/L Chloride 96 (96-109) mmol/L Carbon Dioxide 30.2 (21.6-31.8) mmol/L BUN 12.0 (9.0-27.0) mg/dL Creatinine 0.9 (0.6-1.5) mg/dL Glucose 262 H (70-110) mg/dL Calcium 8.1 L (8.7-10.3) mg/dL Current Medications Generic Name Dose Route Start Last Admin Trade Name Freq PRN Reason Stop Dose Admin Acetaminophen 650 mg 09/11/20 17:33 09/13/20 11:09 Acetaminophen Tab 325 Mg Tab PO 650 mg Q6HR PRN Administration Mild Pain or Fever > 100.5 Hydrocodone Bitart/Acetaminophen 1 each 09/12/20 10:05 09/12/20 10:30 Hydrocodone/Apap 5-325mg 1 Each Tab PO 1 each Q6HR PRN Administration Pain Alprazolam 0.25 mg 09/12/20 13:58 09/12/20 21:41 Alprazolam 0.25 Mg Tab PO 0.25 mg TID PRN Administration Anxiety Atorvastatin Calcium 20 mg 09/11/20 21:00 09/12/20 21:41 Atorvastatin 20 Mg Tab PO 20 mg HS VINICIUS Administration Cyanocobalamin 500 mcg 09/12/20 09:00 09/13/20 11:10 Cyanocobalamin 500 Mcg Tab PO 500 mcg DAILY VINICIUS Administration Famotidine 20 mg 09/12/20 21:00 09/13/20 11:09 Famotidine 20 Mg Tab PO 20 mg Q12HR VINICIUS Administration Heparin Sodium (Porcine) 5,000 unit 09/11/20 21:00 09/13/20 11:09 Heparin Sodium,Porcine 5,000 Unit/Ml 1 Ml Vial SQ 5,000 unit Q12HR VINICIUS Administration Hydromorphone HCl 0.5 mg 09/12/20 13:58 Hydromorphone 0.5 Mg/0.5 Ml Syringe IVP Q6HR PRN Severe Pain Sodium Chloride 1,000 mls @ 130 mls/hr 09/11/20 16:45 09/13/20 08:16 Saline 0.9% IV 130 mls/hr .Q7H42M VINICIUS Administration Ampicillin Sodium/Sulbactam 100 mls @ 200 mls/hr 09/12/20 18:00 09/13/20 11:09 Sodium 3 gm/ Sodium Chloride IVPB 200 mls/hr Q6HR VINICIUS Administration Insulin Aspart 0 unit 09/12/20 17:30 09/13/20 08:16 Insulin Aspart (Novolog) 100 Unit/Ml Vial SQ Not Given ACHS VINICIUS Protocol Ketorolac Tromethamine 15 mg 09/12/20 10:05 09/13/20 05:32 Ketorolac 15 Mg/Ml 1 Ml Vial IVP 09/15/20 10:05 15 mg Q6HR PRN Administration Pain Multivitamins 1 each 09/13/20 09:00 09/13/20 11:10 Multivitamins, Thera 1 Each Tab PO 1 each DAILY VINICIUS Administration Naloxone HCl 0.2 mg 09/11/20 17:33 Naloxone 0.4 Mg/Ml 1 Ml Vial IV Q2M PRN Opioid Reversal Temazepam 15 mg 09/12/20 13:58 Temazepam 15 Mg Cap PO HS PRN Insomnia Zinc Sulfate 220 mg 09/13/20 09:00 09/13/20 11:10 Zinc Sulfate 220 Mg Cap PO 220 mg DAILY VINICIUS Administration Intake and Output 09/12/20 09/13/20 09/13/20 22:59 06:59 14:59 Intake Total 420 825 Output Total 40 Balance 420 785 Intake: IV 825 Oral 420 Output: Estimated Blood Loss 40 Other: Voiding Method Toilet Toilet # Voids 1 Weight 102.512 kg Patient Weight 09/14/20 06:59 Weight 102.512 kg 09/13/20 05:42 09/13/20 05:42 EKG Interpretations (text) Sinus tachycardia with PACs Assessment and Plan Assessment: #1 sepsis secondary to right great toe infection and gangrene, status post right great toe amputation, being followed by ID #2 diabetes mellitus #3 hyperlipidemia Plan: From cardiology's perspective, we will plan to complete the patient's preoperative evaluation for potential upcoming hernia repair at a later date. At this time will follow the patient on an as-needed basis. Please do not hesitate to contact us with questions. The office will contact the patient to reschedule testing to be done in our office. DIETARY TECH note has been reviewed, I agree with a documented findings and plan of care. Patient was seen and examined.
--- NOTE | 2020-09-13 11:42 | P.OP ---
Date of Procedure: 09/13/20 Preoperative Diagnosis: Right great toe gangrene Postoperative Diagnosis: Same Procedure(s) Performed: Right great toe metatarsal amputation with wound VAC negative pressure dressing placement Anesthesia: MAC, local Surgeon: Vernon Oreilly Estimated Blood Loss (ml): 40 Pathology: other (Right great toe and tissue culture) Condition: stable Disposition: floor Indications for Procedure: 55-year-old gentleman who presented to the hospital secondary to right great toe wound after injury to the area after stubbing his toe. Upon evaluation was noted that he had gangrene involving the great toe with extension of possible abscess in need of amputation. Description of Procedure: After written informed consent was obtained the patient all risks benefits and competitions were described the patient was brought to the operative suite and laid in a supine position. The area of the right foot was prepped and draped in the usual sterile fashion after appropriate anesthetic was performed per the anesthesiologist. Timeout was performed in normal fashion. Antibiotics were infused prior to any incision. A racquet incision was then created with a 10 blade scalpel at the base of the necrotic tissue at the great toe and continued circumferentially around the base of the toe. Dissection was then carried down to the metatarsal bone with electrocautery. Soft tissue was then removed from the anterior surface of the metatarsal bone with a periosteal elevator. Amputation was then completed at the metatarsal bone. Soft tissue was then removed from around the great toe and the toe was removed. There was area of abscess under the toe which was drained. All tissue was then removed and sent off for pathology as well as cultures. Hemostasis was obtained. The amputated bone was then filed with a rasp. The area was then copiously irrigated with antibiotic solution. The defect measured 9 x 5 x 4 cm in depth and was unable to be closed. Wound VAC was then placed in normal fashion. The patient all procedure well and was sent to PACU for mat very.
[2020-09-13 11:46] LABS: Glucose,Whole Blood 234 mg/dL (75-99)
[2020-09-13] MEDS: HYDROcodone/APAP 5-325MG 1 EACH TAB PO PRN ×2 (13:02→20:19)
[2020-09-13 13:10] VITALS: BMI 28.2
[2020-09-13 16:59] LABS: Glucose,Whole Blood 378 mg/dL (75-99)
[2020-09-13] MEDS: ATORVASTATIN 20 MG TAB PO SCH (20:19)
[2020-09-13 20:23] LABS: Glucose,Whole Blood 323 mg/dL (75-99)
[2020-09-13] MEDS: INSULIN DETEMIR (LEVEMIR) 100 UNIT/ML SYR SQ SCH (21:52)
[2020-09-14] MEDS: AMPICILLIN-SULBACTAM 3 GM in SODIUM CHLORIDE 0.9% 100 ML IVPB SCH ×5 (00:42→23:53)
[2020-09-14] MEDS: SODIUM CHLORIDE 0.9% 1,000 ML IV SCH ×4 (00:42→20:58)
--- NOTE | 2020-09-14 03:06 | PN ---
PROGRESS NOTE DATE OF SERVICE: 09/13/2020 This 55-year-old gentleman who was admitted with pain and swelling of the right big toe with possible osteomyelitis and gangrene, underwent right great toe metatarsal amputation with wound VAC and negative pressure dressing placement by Dr. Oreilly. The patient will be closely monitored. Patient also had elevated blood sugars also. The patient is also seen by Cardiology. PAST MEDICAL HISTORY: Reviewed. REVIEW OF SYSTEMS: CARDIOVASCULAR SYSTEM: No angina. RESPIRATORY SYSTEM: As mentioned earlier. GI: As mentioned earlier. : No dysuria. NERVOUS SYSTEM: No numbness or weakness. CURRENT MEDICATIONS: Current medications are reviewed and include: Tylenol, [place], Xanax, Unasyn, Pepcid, heparin, Dilaudid, Narcan, Restoril. PHYSICAL EXAMINATION: Patient is alert and oriented x3. The pulse is 88, blood pressure 173/82, respirations 16, temperature 98.4, pulse ox 96% on room air. HEENT: Conjunctivae normal. NECK: No jugular venous distention. CARDIOVASCULAR: S1, S2 muffled. RESPIRATORY: Breath sounds diminished at the bases. Bilateral scattered rhonchi and crackles. ABDOMEN: Soft, nontender. LEGS: Status post amputation of the right big toe. NERVOUS SYSTEM: No focal deficits. LABS: Accu-Cheks 231, 234. WBC 18. ASSESSMENT: 1. Right foot diabetic gangrene and cellulitis with possible sepsis with failure of outpatient treatment, present on admission. 2. Status post right great toe metatarsal amputation wound VAC negative pressure dressing placement. 3. Diabetes mellitus type 2 uncontrolled with hyperglycemia. 4. Increased WBC. 5. Increased platelets. 6. Hyponatremia. 7. Hyperlipidemia. 8. History of hernia repair. 9. Remote history of nicotine dependence. 10.FULL CODE. RECOMMENDATIONS AND DISCUSSION: I recommend to continue current medications, continue symptomatic treatment. Continue with broad-spectrum IV antibiotics, possibly long-term IV antibiotics with PICC line. Closely follow with Infectious Disease. Otherwise, I would also recommend Lantus insulin and Levemir and continue to monitor. Guarded prognosis. Further recommendations to follow. MMODL / IJN: [id number] /
[2020-09-14] MEDS: HYDROcodone/APAP 5-325MG 1 EACH TAB PO PRN ×2 (05:29→12:20)
[2020-09-14 06:48] LABS: Basophils % (A) 0 %; Eosinophils # (A) 0.3 k/uL (0-0.7); Eosinophils % (A) 2 %; HCT 32.6 % (39.0-53.0); Lymphocytes # (A) 2.4 k/uL (1.0-4.8); Lymphocytes % (A) 13 %; MCH 29.7 pg (25.0-35.0); MCHC 33.6 g/dL (31.0-37.0); MCV 88.4 fL (80.0-100.0); Mean Platelet Volume 6.8; Monocytes # (A) 1.1 k/uL (0-1.0); Monocytes % (A) 6 %; Neutrophils # (A) 13.8 k/uL (1.3-7.7); Neutrophils % (A) 78 %; Platelet Count 361 k/uL (150-450); RBC 3.69 m/uL (4.30-5.90); RDW 11.6 % (11.5-15.5); WBC 17.8 k/uL (3.8-10.6)
--- NOTE | 2020-09-14 07:07 | PN ---
PROGRESS NOTE DATE OF SERVICE: 09/14/2020 REASON FOR FOLLOWUP: Right big toe diabetic foot infection with wet gangrene. INTERVAL HISTORY: The patient is currently afebrile. The patient was taken to the OR, is status post amputation of the right big toe. Patient tolerated the procedure. Denies having any chest pain, shortness of breath or cough. No nausea, no vomiting. No abdominal pain, no diarrhea. PHYSICAL EXAMINATION: Blood pressure 155/70 with a pulse of 92, temperature 99.4. He is 96% on room air. General description is a middle-aged male lying in bed in no distress. RESPIRATORY SYSTEM: Unlabored breathing, clear to auscultation anteriorly. HEART: S1, S2. Regular rate and rhythm. ABDOMEN: Soft, no tenderness. Right foot is currently covered with wound VAC. LABS: Hemoglobin is 11.9, white count of 18. BUN of 12 creatinine 0.9. Local cultures currently pending. Blood culture so far negative. DIAGNOSTIC IMPRESSION AND PLAN: Patient with right big toe diabetic foot infection with wet gangrene status post amputation. Will wait for the culture to finalize to determine discharge antibiotics. Covered with Unasyn to continue and monitor his clinical course closely. MMODL / IJN: [id number] /
[2020-09-14 07:17] LABS: Glucose,Whole Blood 251 mg/dL (75-99)
[2020-09-14] MEDS: CYANOCOBALAMIN 500 MCG TAB PO SCH (08:38)
[2020-09-14] MEDS: MULTIVITAMINS, THERA 1 EACH TAB PO SCH (08:38)
[2020-09-14] MEDS: FAMOTIDINE 20 MG TAB PO SCH ×2 (08:38→20:56)
[2020-09-14] MEDS: INSULIN ASPART (NovoLOG) 100 UNIT/ML VIAL SQ SCH ×4 (08:38→20:56)
[2020-09-14] MEDS: ZINC SULFATE 220 MG CAP PO SCH (08:39)
[2020-09-14] MEDS: HEPARIN SODIUM,PORCINE 5,000 UNIT/ML 1 ML VIAL SQ SCH ×2 (08:40→20:57)
[2020-09-14 09:29] LABS: African American GFR (CKD) 112.6 (60.0-200.0); Anion Gap 3.7 mmol/L (4.00-12.00); BUN/Creat Ratio 13.33 Ratio (12.00-20.00); Calcium 7.9 mg/dL (8.7-10.3); Carbon Dioxide 29.3 mmol/L (21.6-31.8); Non-African American GFR(CKD) 97.2 (60.0-200.0); Potassium 4.1 mmol/L (3.5-5.5)
--- NOTE | 2020-09-14 10:20 | ECHOF ---
Referral Reason:surgery MEASUREMENTS -------- HEIGHT: 185.4 cm WEIGHT: 102.1 kg BP: IVSd: 1.4 cm (0.6 - 1.1) LVIDd: 4.9 cm (3.9 - 5.3) LVPWd: 1.1 cm (0.6 - 1.1) EDV(Teich): 112 ml IVSs: 1.5 cm LVIDs: 3.5 cm LVPWs: 1.6 cm %IVS Thck: 9 % ESV(Teich): 50 ml EF(Teich): 55 % %FS: 29 % SV(Teich): 62 ml RVIDd: 2.8 cm (< 3.3) LALs A4C: 5.2 cm LAAs A4C: 18.6 cm LAESV A-L A4C: 57 ml LAESV MOD A4C: 49 ml LALs A2C: 4.5 cm LAAs A2C: 15.8 cm LAESV A-L A2C: 47 ml LAESV MOD A2C: 44 ml LAESV(A-L): 55 ml LAESV Index (A-L): 24.55 ml/m Ao Diam: 3.0 cm (2.0 - 3.7) LA Diam: 3.3 cm (2.7 - 3.8) AV Cusp: 2.0 cm (1.5 - 2.6) EPSS: 0.8 cm MV E Serge: 0.81 m/s MV DecT: 145 ms MV Dec Gage: 5.6 m/s MV A Serge: 0.78 m/s MV E/A Ratio: 1.05 MV PHT: 42 ms AV Vmax: 1.39 m/s AV maxP.70 mmHg TR Vmax: 1.74 m/s TR maxP.13 mmHg RAP: 5.00 mmHg RVSP: 17.13 mmHg MV EF SLOPE: 113.98 mm/s (70 - 150) MV EXCURSION: 17.01 mm (> 18.000) FINDINGS -------- Sinus rhythm. This was a technically adequate study. The left ventricular size is normal. There is mild concentric left ventricular hypertrophy. Overa ll left ventricular systolic function is low-normal with, an EF between 50 - 55 %. The diastolic fi lling pattern is normal for the age of the patient 10.21. The right ventricle is normal in size. Normal LA size by volume 22+/-6 ml/m2. The right atrial size is normal. 5.0mg of Lumason was utilized for enhancement of images The aortic valve is trileaflet, and appears structurally normal. No aortic stenosis or regurgitation. The mitral valve is normal. There is trace mitral regurgitation. The tricuspid valve appears structurally normal. Trace tricuspid regurgitation present. Right kristen tricular systolic pressure is normal at < 35 mmHg. There is no pulmonic regurgitation present. The aortic root size is normal. IVC Not well visulized. There is no pericardial effusion. CONCLUSIONS -------- 1. There is mild concentric left ventricular hypertrophy. 2. Overall left ventricular systolic function is low-normal with, an EF between 50 - 55 %. 3. The diastolic filling pattern is normal for the age of the patient 10.21 4. Normal LA size by volume 22+/-6 ml/m2. 5. The aortic valve is trileaflet, and appears structurally normal. No aortic stenosis or regurgitati on. 6. There is trace mitral regurgitation. 7. Trace tricuspid regurgitation present. 8. There is no pericardial effusion. [employer]: Linda Carrasco RDCS
[2020-09-14 12:00] LABS: Glucose,Whole Blood 292 mg/dL (75-99)
--- NOTE | 2020-09-14 13:14 | P.PN ---
Subjective Progress Note Date: 09/14/20 Patient is evaluated in postoperative day #1. He voices no complaints. Examination revealed the foot to be nontender. The wound VAC is in place and functioning normally. Impression: #1: Status post right great toe amputation with wound VAC therapy in place. All appears well presently. #2: Continue IV antibiotics/supportive medical care. #3: Continue negative pressure wound VAC therapy. Objective - Vital Signs Vital signs: Vital Signs Temp 97.6 F 09/14/20 12:10 Pulse 90 09/14/20 12:10 Resp 20 09/14/20 12:10 BP 102/63 09/14/20 12:10 Pulse Ox 99 09/14/20 12:10 Intake & Output 09/13/20 09/14/20 09/14/20 18:59 06:59 18:59 Intake Total 825 200 Output Total 940 1000 1999 Balance -115 -800 -1999 Weight 102.512 kg Intake: IV 825 Intake, IV Titration 200 Amount Ampicillin-Sulbactam 3 gm 200 In Sodium Chloride 0.9% 100 ml @ 200 mls/hr IVPB Q6HR [facility] Rx#:[id number] Output: Urine 900 1000 1999 Estimated Blood Loss 40 Other: Voiding Method Toilet Toilet Toilet Urinal Urinal - Labs CBC & Chem 7: 09/14/20 06:27 09/14/20 06:27 Labs: Abnormal Lab Results - Last 24 Hours (Table) 09/13/20 09/13/20 09/14/20 Range/Units 16:57 20:21 06:27 WBC (3.8-10.6) k/uL RBC (4.30-5.90) m/uL Hgb (13.0-17.5) gm/dL Hct (39.0-53.0) % Neutrophils # (1.3-7.7) k/uL Monocytes # (0-1.0) k/uL Sodium 131 L (135-145) mmol/L Anion Gap 3.70 L (4.00-12.00) mmol/L Glucose 255 H (70-110) mg/dL POC Glucose (mg/dL) 378 H 323 H (75-99) mg/dL Calcium 7.9 L (8.7-10.3) mg/dL 09/14/20 09/14/20 09/14/20 Range/Units 06:27 07:16 11:58 WBC 17.8 H (3.8-10.6) k/uL RBC 3.69 L (4.30-5.90) m/uL Hgb 11.0 L (13.0-17.5) gm/dL Hct 32.6 L (39.0-53.0) % Neutrophils # 13.8 H (1.3-7.7) k/uL Monocytes # 1.1 H (0-1.0) k/uL Sodium (135-145) mmol/L Anion Gap (4.00-12.00) mmol/L Glucose (70-110) mg/dL POC Glucose (mg/dL) 251 H 292 H (75-99) mg/dL Calcium (8.7-10.3) mg/dL Microbiology - Last 24 Hours (Table) 09/13/20 10:07 Gram Stain - Preliminary Toe - Right First Tissue Culture - Preliminary 09/11/20 17:00 Blood Culture - Preliminary Blood No Growth after 48 hours 09/13/20 10:07 Anaerobic Culture - Preliminary Toe - Right First 09/13/20 10:07 Fungal Culture - Preliminary Toe - Right First
[2020-09-14 17:08] LABS: Glucose,Whole Blood 312 mg/dL (75-99)
[2020-09-14 20:02] LABS: Glucose,Whole Blood 269 mg/dL (75-99)
[2020-09-14] MEDS: ATORVASTATIN 20 MG TAB PO SCH (20:56)
[2020-09-14] MEDS: INSULIN DETEMIR (LEVEMIR) 100 UNIT/ML SYR SQ SCH (20:57)
--- NOTE | 2020-09-14 21:04 | P.PN ---
Subjective Progress Note Date: 09/14/20 This is a 55-year-old male who was recently admitted with right great toe gangrene with possible osteomyelitis and is being closely monitored. Patient underwent right great toe amputation with vascular surgery and wound vac placement. Patient currently remains on IV antibiotic therapy in the form of Unasyn while awaiting for cultures to finalize. Infectious disease following. Patient also had an echo done showing an ef of 50-55%. Patient currently denies any chest pain, shortness of breath, or palpitations. Patient is afebrile. Patient denies any nausea or vomiting and is tolerating diet. Blood sugars continue to be closely monitored and will continue with long acting along with sliding scale. Objective - Vital Signs Vital signs: Vital Signs Temp 97.6 F 09/14/20 12:10 Pulse 90 09/14/20 12:10 Resp 20 09/14/20 12:10 BP 102/63 09/14/20 12:10 Pulse Ox 99 09/14/20 12:10 Intake & Output 09/13/20 09/14/20 09/14/20 18:59 06:59 18:59 Intake Total 825 200 Output Total 940 1000 1999 Balance -115 -800 -1999 Weight 102.512 kg Intake: IV 825 Intake, IV Titration 200 Amount Ampicillin-Sulbactam 3 gm 200 In Sodium Chloride 0.9% 100 ml @ 200 mls/hr IVPB Q6HR [facility] Rx#:[id number] Output: Urine 900 1000 1999 Estimated Blood Loss 40 Other: Voiding Method Toilet Toilet Toilet Urinal Urinal - Exam Gen: This is a 55-year-old male sitting up in bed awake, alert and oriented 3, well-developed, well-nourished. Temp is 97.6F, pulse is 90, respirations are 20, blood pressure is 102/63, oxygen saturation is 99% on room air. HEENT: Head is atraumatic, normocephalic. Pupils equal, round. Sclerae is anicteric. NECK: Supple. No JVD. No lymphadenopathy. No thyromegaly. LUNGS: Breath sounds diminished at the bases with a few scattered rhonchi noted. No intercostal retractions. HEART: S1, S2 are muffled ABDOMEN: Soft. Bowel sounds are present. No masses. No tenderness. Obese EXTREMITIES: No pedal edema. No calf tenderness. Status post amputation of the right big toe with wound vac NEUROLOGICAL: Patient is awake, alert and oriented x3. Cranial nerves 2 through 12 are grossly intact. - Labs CBC & Chem 7: 09/14/20 06:27 09/14/20 06:27 Labs: Abnormal Lab Results - Last 24 Hours (Table) 09/13/20 09/13/20 09/14/20 Range/Units 16:57 20:21 06:27 WBC (3.8-10.6) k/uL RBC (4.30-5.90) m/uL Hgb (13.0-17.5) gm/dL Hct (39.0-53.0) % Neutrophils # (1.3-7.7) k/uL Monocytes # (0-1.0) k/uL Sodium 131 L (135-145) mmol/L Anion Gap 3.70 L (4.00-12.00) mmol/L Glucose 255 H (70-110) mg/dL POC Glucose (mg/dL) 378 H 323 H (75-99) mg/dL Calcium 7.9 L (8.7-10.3) mg/dL 09/14/20 09/14/20 09/14/20 Range/Units 06:27 07:16 11:58 WBC 17.8 H (3.8-10.6) k/uL RBC 3.69 L (4.30-5.90) m/uL Hgb 11.0 L (13.0-17.5) gm/dL Hct 32.6 L (39.0-53.0) % Neutrophils # 13.8 H (1.3-7.7) k/uL Monocytes # 1.1 H (0-1.0) k/uL Sodium (135-145) mmol/L Anion Gap (4.00-12.00) mmol/L Glucose (70-110) mg/dL POC Glucose (mg/dL) 251 H 292 H (75-99) mg/dL Calcium (8.7-10.3) mg/dL Microbiology - Last 24 Hours (Table) 09/13/20 10:07 Gram Stain - Preliminary Toe - Right First Tissue Culture - Preliminary 09/11/20 17:00 Blood Culture - Preliminary Blood No Growth after 48 hours 09/13/20 10:07 Anaerobic Culture - Preliminary Toe - Right First 09/13/20 10:07 Fungal Culture - Preliminary Toe - Right First Assessment and Plan Assessment: Right foot diabetic gangrene and cellulitis with possible sepsis with failure of outpatient treatment, present on admission Status post right great toe metatarsal amputation wound VAC negative pressure dressing placement Diabetes mellitus type 2, uncontrolled with hyperglycemia Increased white blood count Increased platelets Hyponatremia Hyperlipidemia History of hernia repair Remote history of nicotine dependence Full code Recommendations and discussion: Recommend to continue current medications, management, and symptomatic treatmen t. To continue with IV antibiotic therapy in the form of Unasyn while awaiting culture finalization. Case management following with the possibility of IV antibiotic therapy in the outpatient setting. Patient may possibly need a PICC line. Infectious disease is following. Continue to monitor blood sugars closely and continue with long-acting and sliding scale at this time. Due to multiple complex medical issues, prognosis is guarded. Further recommendations to follow.
[2020-09-14] MEDS: ACETAMINOPHEN TAB 325 MG TAB PO PRN (22:16)
[2020-09-14] MEDS: KETOROLAC 15 MG/ML 1 ML VIAL IVP PRN (22:16)
--- NOTE | 2020-09-14 23:01 | PN ---
PROGRESS NOTE DATE OF SERVICE: 09/14/2020 REASON FOR FOLLOWUP: Right big toe diabetic foot infection with wet gangrene. INTERVAL HISTORY: Patient is currently afebrile. The patient is breathing comfortably. The patient denies having any chest pain. No shortness of breath or cough. No nausea, vomiting, abdominal pain, and no pain to the right foot area. PHYSICAL EXAMINATION: Blood pressure 130/69 with a pulse of 90, temperature 97.6. He is 99% on room air. General description: The patient is a middle aged male lying in bed in no distress. Respiratory system: Unlabored breathing. Clear to auscultation anteriorly. Heart S1, S2. Regular rate and rhythm. The right foot is currently covered with a wound VAC. Surrounding swelling persists but no redness. LABS: Hemoglobin is 11.9, white count 17.8, creatinine 0.9. Blood culture negative. DIAGNOSTIC IMPRESSION AND PLAN: Patient with right big toe wet gangrene status post amputation. Local culture pending. Patient is covered with Unasyn. He will likely need a PICC line and short course of antibiotic therapy on discharge. Continue supportive care. MMODL / IJN: [id number] /
[2020-09-15] MEDS: SODIUM CHLORIDE 0.9% 1,000 ML IV SCH (05:52)
[2020-09-15] MEDS: AMPICILLIN-SULBACTAM 3 GM in SODIUM CHLORIDE 0.9% 100 ML IVPB SCH ×4 (05:53→23:49)
[2020-09-15 07:23] LABS: Glucose,Whole Blood 223 mg/dL (75-99)
[2020-09-15] MEDS: FAMOTIDINE 20 MG TAB PO SCH ×2 (08:45→21:09)
[2020-09-15] MEDS: CYANOCOBALAMIN 500 MCG TAB PO SCH (08:45)
[2020-09-15] MEDS: MULTIVITAMINS, THERA 1 EACH TAB PO SCH (08:45)
[2020-09-15] MEDS: INSULIN ASPART (NovoLOG) 100 UNIT/ML VIAL SQ SCH ×4 (08:46→21:10)
[2020-09-15] MEDS: HEPARIN SODIUM,PORCINE 5,000 UNIT/ML 1 ML VIAL SQ SCH ×2 (08:46→21:01)
[2020-09-15] MEDS: ZINC SULFATE 220 MG CAP PO SCH (08:46)
[2020-09-15 09:01] LABS: Basophils % (A) 0 %; Eosinophils # (A) 0.4 k/uL (0-0.7); Eosinophils % (A) 3 %; HCT 37.5 % (39.0-53.0); Lymphocytes % (A) 17 %; MCH 28.6 pg (25.0-35.0); MCHC 31.9 g/dL (31.0-37.0); MCV 89.4 fL (80.0-100.0); Mean Platelet Volume 6.4; Monocytes # (A) 0.7 k/uL (0-1.0); Monocytes % (A) 6 %; Neutrophils # (A) 8.1 k/uL (1.3-7.7); Neutrophils % (A) 71 %; Platelet Count 431 k/uL (150-450); WBC 11.4 k/uL (3.8-10.6)
[2020-09-15 11:54] LABS: Glucose,Whole Blood 252 mg/dL (75-99)
[2020-09-15 13:36] LABS: African American GFR (CKD) 112.6 (60.0-200.0); Anion Gap 7.4 mmol/L (4.00-12.00); BUN/Creat Ratio 13.33 Ratio (12.00-20.00); Calcium 8.3 mg/dL (8.7-10.3); Carbon Dioxide 29.6 mmol/L (21.6-31.8); Non-African American GFR(CKD) 97.2 (60.0-200.0); Potassium 4.4 mmol/L (3.5-5.5)
[2020-09-15 16:56] LABS: Glucose,Whole Blood 289 mg/dL (75-99)
[2020-09-15] MEDS: ACETAMINOPHEN TAB 325 MG TAB PO PRN (18:04)
[2020-09-15 20:35] LABS: Glucose,Whole Blood 312 mg/dL (75-99)
[2020-09-15] MEDS ORDERED: INSULIN DETEMIR (LEVEMIR) 100 UNIT/ML SYR SQ SCH (21:00)
[2020-09-15] MEDS: ATORVASTATIN 20 MG TAB PO SCH (21:09)
--- NOTE | 2020-09-15 21:58 | PN ---
PROGRESS NOTE DATE OF SERVICE: 09/15/2020 This 55-year-old gentleman who was admitted with right foot diabetic and cellulitis, underwent metatarsal amputation of the great toe. The patient had cultures are negative. Patient on broad IV antibiotics. The patient had wound VAC. No chest pain. No palpitations. No fever. PHYSICAL EXAMINATION: Alert and oriented times three. Pulse 78, blood pressure 147/66, temperature 98.4, pulse ox 97% on room air. HEENT: Conjunctivae normal. NECK: No JVD. Cardiovascular: S1, S2. Respiration: Breath sounds diminished in the bases. No rhonchi. No crackles. ABDOMEN: Soft. Legs: Foot status post surgery. LAB STUDIES: WBC 11.9, hemoglobin is 12. Glucose is 289. ASSESSMENT: 1. Right foot diabetic gangrene and cellulitis with possible sepsis and failure of outpatient treatment, present on admission. 2. Status post right great toe metatarsal amputation wound VAC negative pressure dressing placement. 3. Diabetes mellitus type 2, uncontrolled with hyperglycemia. 4. Increased WBC. 5. Increased platelets. 6. Hyponatremia. 7. Hyperlipidemia. 8. History of hernia repair. 9. Remote history of nicotine dependence. 10.FULL CODE. RECOMMENDATIONS AND DISCUSSION: I recommend to continue current medications, symptomatic treatment. Otherwise, continue with antibiotics. Otherwise, Dr. Trinidad has seen the patient. Continue the wound VAC. The Wound VAC results are very low at this time. Dr. Trinidad is planning a PICC line and short course of IV antibiotics in the outpatient setting. Cultures are pending at this time. No chest pain. No palpitations. No fever. Further recommendations to follow. MMODL / IJN: [id number] /
--- NOTE | 2020-09-16 00:27 | PN ---
PROGRESS NOTE DATE OF SERVICE: 09/15/2020 REASON FOR FOLLOWUP: 1. Right big toe wet gangrene. 2. Diabetic foot infection. INTERVAL HISTORY: Patient is currently afebrile, has been breathing comfortably. The patient denies having any chest pain. No shortness of breath or cough. No nausea. No abdominal pain or vomiting. Pain to the right foot. PHYSICAL EXAMINATION: Blood pressure 156/84, pulse of 76, temperature 98.4. He is 98% room air. General descrdiption: The patient is a middle-aged male lying in bed in no distress. Respiratory system: Unlabored breathing clear to auscultation anteriorly. Heart S1, S2. Regular rate and rhythm. ABDOMEN: Currently covered with wound vac. Hemoglobin 12.7, white count 11.4. Right foot currently covered with wound vac. Hemoglobin 12.1, 11.4. Culture have been negative for resistant pathogen. DIAGNOSTIC IMPRESSION AND PLAN: Patient with right big toe diabetic foot infection in this patient who is status post amputation of the right big toe with infected part removal. He will not need long-term therapy however determine the amount of wound at the time of dressing change tomorrow. Continue with Unasyn and continue supportive care. MMODL / IJN: [id number] /
[2020-09-16] MEDS: HYDROcodone/APAP 5-325MG 1 EACH TAB PO PRN ×3 (04:29→20:38)
[2020-09-16] MEDS: AMPICILLIN-SULBACTAM 3 GM in SODIUM CHLORIDE 0.9% 100 ML IVPB SCH ×4 (05:27→23:13)
[2020-09-16 08:13] LABS: Glucose,Whole Blood 226 mg/dL (75-99)
[2020-09-16] MEDS: INSULIN ASPART (NovoLOG) 100 UNIT/ML VIAL SQ SCH ×4 (08:22→20:39)
[2020-09-16] MEDS: HEPARIN SODIUM,PORCINE 5,000 UNIT/ML 1 ML VIAL SQ SCH ×2 (08:22→20:40)
[2020-09-16] MEDS: ZINC SULFATE 220 MG CAP PO SCH (08:22)
[2020-09-16] MEDS: FAMOTIDINE 20 MG TAB PO SCH ×2 (08:22→20:38)
[2020-09-16] MEDS: MULTIVITAMINS, THERA 1 EACH TAB PO SCH (08:22)
[2020-09-16] MEDS: CYANOCOBALAMIN 500 MCG TAB PO SCH (08:22)
[2020-09-16 11:54] LABS: Glucose,Whole Blood 247 mg/dL (75-99)
[2020-09-16] MEDS ORDERED: SENNOSIDES-DOCUSATE SODIUM 1 EACH TAB PO PRN (14:31)
[2020-09-16 16:33] LABS: Glucose,Whole Blood 348 mg/dL (75-99)
[2020-09-16] MEDS: DOCUSATE 100 MG CAP PO SCH (20:38)
[2020-09-16] MEDS: ATORVASTATIN 20 MG TAB PO SCH (20:38)
[2020-09-16] MEDS: INSULIN DETEMIR (LEVEMIR) 100 UNIT/ML SYR SQ SCH (20:39)
[2020-09-16 20:49] LABS: Glucose,Whole Blood 257 mg/dL (75-99)
--- NOTE | 2020-09-16 23:23 | PN ---
PROGRESS NOTE DATE OF SERVICE: 09/16/2020 This 55-year-old gentleman who was admitted with right foot diabetic gangrene and cellulitis with possible sepsis and failure of outpatient treatment, underwent right great toe metatarsal amputation and wound VAC placement also. The patient is being closely monitored. Patient on broad spectrum IV antibiotics. Dr. Trinidad is recommending PICC line and a few weeks of IV antibiotic treatment. No chest pain or palpitations. Wound VAC drainage is almost nil. PHYSICAL EXAMINATION: On exam, alert and oriented x3. Pulse is 84, blood pressure 133/64, respirations 16, temperature 98.4, pulse ox 93% on room air. HEENT: Conjunctivae normal. NECK: No jugular venous distention. CARDIOVASCULAR: S1, S2 muffled. RESPIRATORY: Breath sounds diminished at the bases. Scattered rhonchi. ABDOMEN: Soft, nontender. LEGS: Status post right foot surgery. LABS: Accu-Cheks 226, 247 and 348. WBC 11.4. Sodium is 134. ASSESSMENT: 1. Right foot diabetic gangrene cellulitis with possible sepsis and failure of outpatient treatment, present on admission. 2. Status post right great toe metatarsal amputation with wound VAC negative pressure dressing placement. 3. Diabetes mellitus type 2, uncontrolled with hyperglycemia. 4. Increased WBC. 5. Increased platelets. 6. Hyponatremia. 7. Hyperlipidemia. 8. History of hernia repair. 9. Remote history of nicotine dependence. 10.FULL CODE. RECOMMENDATIONS AND DISCUSSION: I recommend to continue current medications, continue IV antibiotics and PICC line per Dr. Trinidad. Otherwise, I would also recommend PT, OT evaluation. Also recommend to increase the dose of insulin. Currently the patient is started on Levemir 25 units. I would recommend to increase the dose to 35 units and continue to monitor. Otherwise, guarded prognosis. Further recommendations to follow. MMODL / IJN: [id number] /
[2020-09-17 02:17] LABS: Glucose,Whole Blood 191 mg/dL (75-99)
[2020-09-17] MEDS: HYDROcodone/APAP 5-325MG 1 EACH TAB PO PRN ×3 (02:21→19:59)
[2020-09-17] MEDS: AMPICILLIN-SULBACTAM 3 GM in SODIUM CHLORIDE 0.9% 100 ML IVPB SCH ×3 (05:28→18:03)
--- NOTE | 2020-09-17 05:38 | PN ---
PROGRESS NOTE DATE OF SERVICE: 09/16/2020 REASON FOR FOLLOWUP: Right diabetic foot infection. INTERVAL HISTORY: Patient is currently afebrile. The patient is feeling better. Breathing comfortably. The patient denies having any chest pain or shortness of breath or cough. No nausea, vomiting, abdominal pain. Did have some discomfort with wound VAC. PHYSICAL EXAMINATION: Blood pressure is 155/76, pulse of 90, temperature 97.9. He is 97% on room air. General description is a middle-aged male lying in bed in no distress. Respiratory system: Unlabored breathing, clear to auscultation anteriorly. Heart S1, S2. Regular rate and rhythm. Abdomen is soft, no tenderness. Right big toe amputation site wound did have some soft tissue surrounding swelling but no redness or drainage. LABS: Wound culture so far negative. DIAGNOSTIC IMPRESSION AND PLAN: Patient with right big toe diabetic foot infection with wet gangrene, status post amputation. Cultures have been negative for resistant pathogen. Patient will need a PICC line for outpatient IV antibiotic therapy, as concern for underlying osteomyelitis. The patient to continue with Unasyn. Discharge antibiotic will be either Invanz 1 g daily or Rocephin 2 grams daily and oral Flagyl. Patient strongly advised local wound care with wound VAC to help heal this wound. Continue supportive care. MMODL / IJN: [id number] /
[2020-09-17] MEDS: INSULIN ASPART (NovoLOG) 100 UNIT/ML VIAL SQ SCH ×4 (07:42→21:13)
[2020-09-17] MEDS: HEPARIN SODIUM,PORCINE 5,000 UNIT/ML 1 ML VIAL SQ SCH ×3 (07:48→19:56)
[2020-09-17] MEDS: MULTIVITAMINS, THERA 1 EACH TAB PO SCH (07:49)
[2020-09-17] MEDS: FAMOTIDINE 20 MG TAB PO SCH ×2 (07:49→19:52)
[2020-09-17] MEDS: ZINC SULFATE 220 MG CAP PO SCH (07:49)
[2020-09-17 07:50] LABS: Basophils % (A) 0 %; Eosinophils # (A) 0.4 k/uL (0-0.7); Eosinophils % (A) 3 %; HCT 40.7 % (39.0-53.0); HGB 12.9 gm/dL (13.0-17.5); Lymphocytes # (A) 2.3 k/uL (1.0-4.8); Lymphocytes % (A) 18 %; MCH 28.4 pg (25.0-35.0); MCHC 31.7 g/dL (31.0-37.0); MCV 89.6 fL (80.0-100.0); Mean Platelet Volume 6.3; Monocytes # (A) 0.7 k/uL (0-1.0); Monocytes % (A) 5 %; Neutrophils # (A) 9.6 k/uL (1.3-7.7); Neutrophils % (A) 73 %; Platelet Count 512 k/uL (150-450); RBC 4.54 m/uL (4.30-5.90); RDW 12.3 % (11.5-15.5); WBC 13.2 k/uL (3.8-10.6)
[2020-09-17] MEDS: DOCUSATE 100 MG CAP PO SCH ×3 (07:50→19:55)
[2020-09-17] MEDS: CYANOCOBALAMIN 500 MCG TAB PO SCH (07:50)
[2020-09-17 10:33] LABS: Erythrocyte Sedimentation Rate 94 mm/hr (0-15)
[2020-09-17 11:21] LABS: Glucose,Whole Blood 271 mg/dL (75-99)
--- NOTE | 2020-09-17 12:02 | P.PN ---
Subjective Progress Note Date: 09/17/20 Principal diagnosis: Gangrene of right great toe This is a patient who is postop day #3 for a right great toe metatarsal amputation with wound VAC negative pressure dressing placement reactive patient states he is doing well. He has been up and ambulating. He is without pain. He states the redness is improving, he denies any fevers or chills through the night. The plan is for a PICC line placement today with possible discharge home with IV antibiotics per infectious disease. The patient states the wound VAC was discontinued yesterday evening by infectious disease. Objective - Vital Signs Vital signs: Vital Signs Temp 97.5 F L 09/17/20 07:48 Pulse 79 09/17/20 07:48 Resp 18 09/17/20 07:48 BP 144/52 09/17/20 07:48 Pulse Ox 97 09/17/20 07:48 Intake & Output 09/16/20 09/17/20 09/17/20 18:59 06:59 18:59 Intake Total 3000 100 Balance 3000 100 Intake: Intake, IV Titration 200 100 Amount Ampicillin-Sulbactam 3 gm 200 100 In Sodium Chloride 0.9% 100 ml @ 200 mls/hr IVPB Q6HR [facility] Rx#:[id number] Oral 2800 Other: Voiding Method Urinal # Voids 6 - Exam General appearance: The patient is alert, oriented, in no acute distress. HET: Head is normocephalic and atraumatic. Neck: Supple without lymphadenopathy. Trachea midline. Extremities: Right great toe amputation site with a wet-to-dry dressing in place with sanguineous drainage. Dressing was changed, and a wet-to-dry dressing was reapplied. Erythema to the dorsal and plantar aspect of the foot. Neurological: No focal deficits. Strength and sensation are grossly intact. - Labs CBC & Chem 7: 09/17/20 06:35 09/15/20 08:21 Labs: Abnormal Lab Results - Last 24 Hours (Table) 09/16/20 09/16/20 09/16/20 Range/Units 11:51 16:32 20:30 WBC (3.8-10.6) k/uL Hgb (13.0-17.5) gm/dL Plt Count (150-450) k/uL Neutrophils # (1.3-7.7) k/uL ESR (0-15) mm/hr POC Glucose (mg/dL) 247 H 348 H 257 H (75-99) mg/dL C-Reactive Protein (0.0-0.8) mg/dL 09/17/20 09/17/20 09/17/20 Range/Units 02:14 06:35 06:35 WBC 13.2 H (3.8-10.6) k/uL Hgb 12.9 L (13.0-17.5) gm/dL Plt Count 512 H (150-450) k/uL Neutrophils # 9.6 H (1.3-7.7) k/uL ESR 94 H (0-15) mm/hr POC Glucose (mg/dL) 191 H (75-99) mg/dL C-Reactive Protein 4.1 H (0.0-0.8) mg/dL 09/17/20 Range/Units 11:18 WBC (3.8-10.6) k/uL Hgb (13.0-17.5) gm/dL Plt Count (150-450) k/uL Neutrophils # (1.3-7.7) k/uL ESR (0-15) mm/hr POC Glucose (mg/dL) 271 H (75-99) mg/dL C-Reactive Protein (0.0-0.8) mg/dL Microbiology - Last 24 Hours (Table) 09/13/20 10:07 Anaerobic Culture - Final Toe - Right First 09/13/20 10:07 Gram Stain - Final Toe - Right First Tissue Culture - Final 09/11/20 17:00 Blood Culture - Preliminary Blood No Growth after 120 hours Assessment and Plan Assessment: #1: Status post right great toe amputation with wound VAC therapy in place. All appears well presently. #2: Continue IV antibiotics/supportive medical care. #3: Continue negative pressure wound VAC therapy. Plan: Discussed with Dr. Oreilly that wound VAC dressing had been removed. Dr. Oreilly would like the wound VAC negative pressure dressing reapplied. Nursing notified to reapply wound VAC dressing and patient should be discharged home w ith it. Order was written for outpatient wound vac over the weekend by Dr. Mccarthy. Patient to have a PICC line placed today, IV antibiotics per infectious disease recommendations. Patient may be discharged home from a vascular surgical standpoint, with follow-up in one week with Dr. Oreilly. He will continue to follow as outpatient with wound care. The above dictated assessment and findings were discussed with Dr. Oreilly. The impression and plan of care have been directed as dictated.
[2020-09-17 16:17] LABS: Glucose,Whole Blood 313 mg/dL (75-99)
[2020-09-17] MEDS: ATORVASTATIN 20 MG TAB PO SCH (19:52)
[2020-09-17 19:54] LABS: Glucose,Whole Blood 325 mg/dL (75-99)
[2020-09-17] MEDS: INSULIN DETEMIR (LEVEMIR) 100 UNIT/ML SYR SQ SCH (21:13)
--- NOTE | 2020-09-18 00:17 | P.PN ---
Progress Note - Text Progress Note Date: 09/17/20 Presenting complaint: Right for diabetic gangrene Interval history: 55-year-old patient admitted with right foot diabetic gangrene and cellulitis with possible sepsis having failed outpatient treatment. Underwent right great toe metatarsal amputation and wound VAC placement. Today-dressing in place. Pain well controlled. Has been ambulating on his heel. Antibiotics were home are being arranged. Keen to go home. Oral intake good. No fever no chills. Review of systems: Was done for constitutional, cardiovascular, GI, pulmonary. relevant finding as above Active Medications Acetaminophen (Acetaminophen Tab 325 Mg Tab) 650 mg PO Q6HR PRN PRN Reason: Mild Pain or Fever > 100.5 Last Admin: 09/15/20 18:04 Dose: 650 mg Documented by: Hydrocodone Bitart/Acetaminophen (Hydrocodone/Apap 5-325mg 1 Each Tab) 1 each PO Q6HR PRN PRN Reason: Pain Last Admin: 09/17/20 19:59 Dose: 1 each Documented by: Alprazolam (Alprazolam 0.25 Mg Tab) 0.25 mg PO TID PRN PRN Reason: Anxiety Last Admin: 09/12/20 21:41 Dose: 0.25 mg Documented by: Atorvastatin Calcium (Atorvastatin 20 Mg Tab) 20 mg PO HS [facility] Last Admin: 09/17/20 19:52 Dose: 20 mg Documented by: Cyanocobalamin (Cyanocobalamin 500 Mcg Tab) 500 mcg PO DAILY [facility] Last Admin: 09/17/20 07:50 Dose: 500 mcg Documented by: Docusate Sodium (Docusate 100 Mg Cap) 100 mg PO BID [facility] Last Admin: 09/17/20 19:55 Dose: Not Given Documented by: Famotidine (Famotidine 20 Mg Tab) 20 mg PO Q12HR [facility] Last Admin: 09/17/20 19:52 Dose: 20 mg Documented by: Heparin Sodium (Porcine) (Heparin Sodium,Porcine 5,000 Unit/Ml 1 Ml Vial) 5,000 unit SQ Q12HR [facility] Last Admin: 09/17/20 19:56 Dose: Not Given Documented by: Hydromorphone HCl (Hydromorphone 0.5 Mg/0.5 Ml Syringe) 0.5 mg IVP Q6HR PRN PRN Reason: Severe Pain Ampicillin Sodium/Sulbactam (Sodium 3 gm/ Sodium Chloride) 100 mls @ 200 mls/hr IVPB Q6HR [facility] Last Admin: 09/17/20 18:03 Dose: 200 mls/hr Documented by: Insulin Aspart (Insulin Aspart (Novolog) 100 Unit/Ml Vial) 0 unit SQ ACHS [facility]; Protocol Last Admin: 09/17/20 21:13 Dose: 5 unit Documented by: Insulin Detemir (Insulin Detemir (Levemir) 100 Unit/Ml Syr) 35 unit SQ HS [facility] Last Admin: 09/17/20 21:13 Dose: 35 unit Documented by: Multivitamins (Multivitamins, Thera 1 Each Tab) 1 each PO DAILY [facility] Last Admin: 09/17/20 07:49 Dose: 1 each Documented by: Naloxone HCl (Naloxone 0.4 Mg/Ml 1 Ml Vial) 0.2 mg IV Q2M PRN PRN Reason: Opioid Reversal Senna/Docusate Sodium (Sennosides-Docusate Sodium 1 Each Tab) 1 each PO DAILY PRN PRN Reason: Constipation Temazepam (Temazepam 15 Mg Cap) 15 mg PO HS PRN PRN Reason: Insomnia Zinc Sulfate (Zinc Sulfate 220 Mg Cap) 220 mg PO DAILY [facility] Last Admin: 09/17/20 07:49 Dose: 220 mg Documented by: On examination: VITAL SIGNS: 97.5, 79, 18, 144/52, 97% room air GENERAL APPEARANCE: Sitting up on chair, comfortable. HEENT: Normal external appearance of nose and ear. Oral cavity normal EYES: Pupils equal. Conjunctiva normal. NECK: JVD not raised. Mass not palpable. RESPIRATORY: Respiratory effort normal. Lungs clear to auscultation. CARDIOVASCULAR: First and second sounds normal. No edema. ABDOMEN: Soft. Liver and spleen not palpable. No tenderness. No mass palpable. PSYCHIATRY: Alert and oriented x3. Mood and affect normal. MUSCULOSKELETAL: Right foot and a dressing INVESTIGATIONS, reviewed in the clinical context: White count 13.2 hemoglobin 12.9 platelets 512 ESR 94 CRP 4.1 Previous testing: White count 22.2 hemoglobin 13.9 potassium 5 creatinine 0.7 to Wound cultures all coming back negative Assessment: -Right great toe metatarsal amputation with wound VAC secondary to gangrene -Diabetes mellitus type 2, uncontrolled with hyperglycemia -Hyperlipidemia -Hyponatremia Plan: Patient's currently on IV Unasyn. Other medications to continue. Home antibiotics are being arranged. Discussed with patient. Hopefully discharged home tomorrow
[2020-09-18] MEDS: AMPICILLIN-SULBACTAM 3 GM in SODIUM CHLORIDE 0.9% 100 ML IVPB SCH ×3 (00:30→14:11)
--- NOTE | 2020-09-18 01:48 | PN ---
PROGRESS NOTE DATE OF SERVICE: 09/17/2020 REASON FOR FOLLOWUP: Right big toe diabetic foot infection with wet gangrene. INTERVAL HISTORY: The patient is currently afebrile. He has been breathing comfortably. Denies having any chest pain or shortness of breath or cough. No nausea no vomiting. No abdominal pain or pain to the right big toe. PHYSICAL EXAMINATION: Blood pressure is 145/77 with a pulse of 84, temperature is 97.7. He is 97% on room air. General description is a middle-aged male lying in bed in no distress. RESPIRATORY SYSTEM: Unlabored breathing, clear to auscultation anteriorly. HEART: S1, S2. Regular rate and rhythm. ABDOMEN: Soft, no tenderness. Right foot is currently dressed up. No obvious drainage on the dressing. LABS: Hemoglobin is 12.9, white count 13.2. CRP 4.1. Cultures so far negative. DIAGNOSTIC IMPRESSION AND PLAN: Patient with right big toe diabetic foot infection with wet gangrene, status post right big toe amputation. Culture negative for any resistant pathogen. Currently on Unasyn transition to Rocephin 2 grams daily and oral Flagyl for at least 6 weeks for which a PICC line will be placed. Currently waiting for outpatient IV antibiotic arrangement before discharge. Continue with supportive care. MMODL / IJN: [id number] /
[2020-09-18 05:04] VITALS: RESP 18
[2020-09-18 07:45] LABS: Glucose,Whole Blood 238 mg/dL (75-99)
[2020-09-18 08:09] VITALS: BP 142/69; PULSE 73; TEMP 98.1
[2020-09-18] MEDS: MULTIVITAMINS, THERA 1 EACH TAB PO SCH (08:38)
[2020-09-18] MEDS: ZINC SULFATE 220 MG CAP PO SCH (08:39)
[2020-09-18] MEDS: CYANOCOBALAMIN 500 MCG TAB PO SCH (08:39)
[2020-09-18] MEDS: INSULIN ASPART (NovoLOG) 100 UNIT/ML VIAL SQ SCH ×2 (08:40→14:18)
[2020-09-18] MEDS: FAMOTIDINE 20 MG TAB PO SCH (08:40)
[2020-09-18] MEDS: DOCUSATE 100 MG CAP PO SCH (08:40)
[2020-09-18] MEDS: HEPARIN SODIUM,PORCINE 5,000 UNIT/ML 1 ML VIAL SQ SCH (08:40)
--- NOTE | 2020-09-18 10:01 | P.PN ---
Subjective Progress Note Date: 09/18/20 Principal diagnosis: Gangrene of right great toe Seen and examines. Patient is upset today. He discharged home. Patient states he is leaving by this evening no matter what. The wound that was supposed be reapplied yesterday morning, however it was not reapplied. Patient has dressings to the right lower extremity that is clean dry and intact. He denies any fevers, chills, or acute changes through the night. Patient is scheduled to have a PICC line placement today for discharge home with antibiotics. Objective - Vital Signs Vital signs: Vital Signs Temp 98.1 F 09/18/20 07:00 Pulse 73 09/18/20 07:00 Resp 18 09/18/20 07:00 BP 142/69 09/18/20 07:00 Pulse Ox 98 09/18/20 07:00 Intake & Output 09/17/20 09/18/20 09/18/20 18:59 06:59 18:59 Intake Total 950 Balance 950 Intake: Intake, IV Titration 800 Amount Ampicillin-Sulbactam 3 gm 800 In Sodium Chloride 0.9% 100 ml @ 200 mls/hr IVPB Q6HR [facility] Rx#:[id number] Oral 150 Other: Voiding Method Toilet # Voids 2 2 - Exam General appearance: The patient is alert, oriented, in no acute distress. HET: Head is normocephalic and atraumatic. Neck: Supple without lymphadenopathy. Trachea midline. Extremities: Right foot with dressing that is clean dry and intact. Nonpitting edema to the right lower extremity. Skin is warm to the touch with good capillary refill. Neurological: No focal deficits. Strength and sensation are grossly intact. - Labs CBC & Chem 7: 09/17/20 06:35 09/15/20 08:21 Labs: Abnormal Lab Results - Last 24 Hours (Table) 09/17/20 09/17/20 09/17/20 Range/Units 06:35 11:18 16:15 ESR 94 H (0-15) mm/hr POC Glucose (mg/dL) 271 H 313 H (75-99) mg/dL 09/17/20 09/18/20 Range/Units 19:54 07:42 ESR (0-15) mm/hr POC Glucose (mg/dL) 325 H 238 H (75-99) mg/dL Microbiology - Last 24 Hours (Table) 09/11/20 17:00 Blood Culture - Final Blood No Growth after 144 hours 09/13/20 10:07 Anaerobic Culture - Final Toe - Right First 09/13/20 10:07 Gram Stain - Final Toe - Right First Tissue Culture - Final Assessment and Plan Assessment: #1: Status post right great toe amputation with wound VAC therapy in place. All appears well presently. #2: Continue IV antibiotics/supportive medical care. #3: Continue negative pressure wound VAC therapy. Plan: If wound vac not approved before discharge then continue with dialy wet to dry dressing changes until his appointment with wound care. Otherwise Reapply wound VAC negative pressure dressing and follow up with wound care center on Thursday to change dressing. Patient to have a PICC line placed today, IV antibiotics per infectious disease recommendations. Patient may be discharged home from a vascular surgical standpoint, with follow-up in 2-[address] Oreilly. Consult wound care. He will continue to follow as outpatient with wound care clinic. The impression and plan of care has been dictated as directed. I performed a history and examination of this patient, discussed the same with the dictator. I agree with the dictator's note ,documented as a scribe. Any additional findings or plans will be noted.
[2020-09-18] MEDS: HYDROcodone/APAP 5-325MG 1 EACH TAB PO PRN (11:09)
[2020-09-18 11:44] LABS: Glucose,Whole Blood 263 mg/dL (75-99)
[2020-09-18] MEDS ORDERED: LIDOCAINE 1% INJ 10MG/ML (20 ML MDV) SQ ONE (12:41)
[2020-09-18] MEDS ORDERED: ERTAPENEM 1 GM in SODIUM CHLORIDE 0.9% 50 ML IVPB STA (13:12)
--- NOTE | 2020-09-18 14:00 | IR ---
EXAMINATION TYPE: IR cvc insert >=5 years DATE OF EXAM: 09/18/2020 COMPARISON: NONE CLINICAL HISTORY: Infection, gangrene of great toe, amputation Needs long-term intravenous access for antibiotics. PROCEDURE: Hand hygiene obtained with soap and water and alcohol-based hand rub. After informed consent, the skin overlying the left basilic vein was localized with ultrasound and no carly to be compressible and patent. An ultrasound image was obtained and submitted on the patient's c chow. The overlying skin was prepped and draped and Lidocaine was used for local anesthesia. A skin heidi was made with a scalpel. Access was gained to the vein under ultrasound guidance with a 21 gau ge needle and a 0.018 inch wire was advanced. Access site was dilated with Peel-Away sheath and cath eter tailored to the appropriate length and advanced such that the distal tip is at the cavoatrial ju nction. Spot image was obtained verifying placement. Catheter was fixed to the skin and a sterile d ressing was placed following hemostasis. Catheter was aspirated and flushed with saline. Patient wa s discharged in stable condition without complication.Maximal barrier technique is utilized. Ultraso und image is documented on the chart. Ultrasound used with sterile technique. Fluoro time and fluoroscopic images submitted to document procedure: 0.3 minutes fluoroscopy time, 96 intraoperative images document the procedure IMPRESSION: STATUS POST ULTRASOUND AND FLUOROSCOPIC GUIDED PICC LINE PLACEMENT, READY FOR USE. THIS PROCEDURE WAS PERFORMED BY THE UNDERSIGNED.
--- NOTE | 2020-09-18 14:37 | PN ---
PROGRESS NOTE DATE OF SERVICE: 09/18/2020 REASON FOR FOLLOWUP: Right big toe diabetic foot infection with wet gangrene, osteo. INTERVAL HISTORY: The patient is currently afebrile, has been breathing comfortably denies any chest pain or any cough. No nausea. No abdominal pain. No diarrhea. Pain to the wound is currently controlled. Waiting for the PICC line placement. PHYSICAL EXAMINATION: Blood pressure 142/69, pulse of 73, temperature 98.1 he is 98% on room air. General description is a middle-aged male, lying in bed in no distress. RESPIRATORY SYSTEM: Unlabored breathing, clear to auscultation anteriorly. HEART: S1, S2. Regular rate and rhythm. Right big toe is currently covered with a wound VAC. DIAGNOSTIC IMPRESSION AND PLAN: Patient with right big toe wet gangrene, suppurative infection and concern for underlying osteo. The patient is status post amputation of the big toe; however, did have significant infection with bone exposed. Plan for 6 weeks of IV Invanz 1 g daily. Local wound care with wound VAC and close outpatient followup. MMODL / IJN: [id number] /
--- NOTE | 2020-09-18 19:27 | P.DS ---
Providers Date of admission: 09/11/20 18:18 Expected date of discharge: 09/18/20 Attending physician: Eugenio Calix Consults: 09/11/20 17:34 Consult Physician Routine Consulting Provider: Bernie Trinidad Consult Reason/Comments: gangrene Do you want consulting provider notified?: Yes 09/11/20 17:35 Consult Physician Routine Consulting Provider: Barry Mccarthy Consult Reason/Comments: gangrene, suspected osteomyelitis right great toe Do you want consulting provider notified?: Yes Primary care physician: [facility] Course: Presenting complaint: Right foot diabetic gangrene Interval history: 55-year-old patient admitted with right foot diabetic gangrene and cellulitis with possible sepsis having failed outpatient treatment. Underwent right great toe metatarsal amputation and wound VAC placement. Today-doing better. Code oral intake. Diabetic care was discussed. Per Dr. Colin patient to get 6 weeks of IV Invanz. 1 g daily. Wound care to continue as per vascular. Consultation: . Dr. Trinidad from ID Dr. Oreilly from vascular surgery Dr. Martínez from cardiology associates On examination: VITAL SIGNS: 98.1, 73, 18, 142/69, 98% room air GENERAL APPEARANCE: Sitting up on chair, comfortable. HEENT: Normal external appearance of nose and ear. Oral cavity normal EYES: Pupils equal. Conjunctiva normal. NECK: JVD not raised. Mass not palpable. RESPIRATORY: Respiratory effort normal. Lungs clear to auscultation. CARDIOVASCULAR: First and second sounds normal. No edema. ABDOMEN: Soft. Liver and spleen not palpable. No tenderness. No mass palpable. PSYCHIATRY: Alert and oriented x3. Mood and affect normal. MUSCULOSKELETAL: Right foot - dressing INVESTIGATIONS, reviewed in the clinical context: White count 13.2 hemoglobin 12.9 platelets 512 ESR 94 CRP 4.1 Previous testing: White count 22.2 hemoglobin 13.9 potassium 5 creatinine 0.7 to Wound cultures all coming back negative Assessment: -Right great toe metatarsal amputation with wound VAC secondary to gangrene, secondary to diabetes, POA -Sepsis from right foot gangrene, POA -Diabetes mellitus type 2, uncontrolled with hyperglycemia -Hyperlipidemia -Hyponatremia -Essential hypertension Disposition: Home Labs: CBC, BMP-1 week Patient Condition at Discharge: Stable Plan - Discharge Summary Discharge Rx Participant: No New Discharge Prescriptions: New Insulin NPL/Insulin Lispro [humaLOG MIX 75-25 VIAL] 14 unit SQ AC-BID #1 vial Lisinopril-Hctz 10-12.5 mg [Zestoretic 10-12.5] 1 tab PO DAILY #60 tab HYDROcodone/APAP 5-325MG [Dozier 5-325] 1 each PO Q6HR PRN 3 Days #12 tab PRN Reason: Pain Continue Vitamin B-12 (Unknown Strength) 1 tab PO DAILY Multivitamins, Thera [Multivitamin (formulary)] 1 tab PO DAILY Atorvastatin Calcium [Lipitor] 20 mg PO HS Zinc 50 mg PO DAILY Discharge Medication List Atorvastatin Calcium [Lipitor] 20 mg PO HS 09/11/20 [History] Multivitamins, Thera [Multivitamin (formulary)] 1 tab PO DAILY 09/11/20 [History] Vitamin B-12 (Unknown Strength) 1 tab PO DAILY 09/11/20 [History] Zinc 50 mg PO DAILY 09/11/20 [History] HYDROcodone/APAP 5-325MG [Dozier 5-325] 1 each PO Q6HR PRN 3 Days #12 tab 09/18/20 [Rx] Insulin NPL/Insulin Lispro [humaLOG MIX 75-25 VIAL] 14 unit SQ AC-BID #1 vial 09/18/20 [Rx] Lisinopril-Hctz 10-12.5 mg [Zestoretic 10-12.5] 1 tab PO DAILY #60 tab 09/18/20 [Rx] Follow up Appointment(s)/Referral(s): Vernon Oreilly DO [STAFF PHYSICIAN] - 4 Weeks [facility] [NON-STAFF] - 09/19/20 10:00 am Leonel Rm DO [Primary Care Provider] - 1-2 days [facility] [NON-STAFF] - 09/21/20 8:00 am (at your appointment you will discuss a schedule for further appointment.) Bernie Trinidad MD [STAFF PHYSICIAN] - 1 Week Patient Instructions/Handouts: Diabetic Foot Ulcers (DC), Type 2 Diabetes M anagement for Adults (DC) Activity/Diet/Wound Care/Special Instructions: Wound Vac was approved through [facility], they can be contacted at with any question. [facility] was referred for your glucometer and other DM testing supplies. They can be contacted at [phone] Discharge Disposition: HOME SELF-CARE
== END 2020-09-18 17:26 | disposition home or self-care (01) | DRG 854 ==
LOC: EC 16:20 → 5NMEDONC 18:18
PROVIDERS: ADMIT Hospitalist; ATTEND Hospitalist
PROC: 0Y6P0Z0 Detachment at Right 1st Toe, Complete, Open Approach (ICD-10-PCS; principal; 2020-09-13 09:00)
PROC: 02HV33Z Insertion of Infusion Device into Superior Vena Cava, Percutaneous Approach (ICD-10-PCS; 2020-09-18)
DX: A41.9 Sepsis, unspecified organism (principal); E11.52 Type 2 diabetes mellitus with diabetic peripheral angiopathy with gangrene; I96 Gangrene, not elsewhere classified; E87.1 Hypo-osmolality and hyponatremia; L03.115 Cellulitis of right lower limb; E11.40 Type 2 diabetes mellitus with diabetic neuropathy, unspecified; E11.65 Type 2 diabetes mellitus with hyperglycemia; E78.5 Hyperlipidemia, unspecified; I10 Essential (primary) hypertension; I49.1 Atrial premature depolarization; Z79.899 Other long term (current) drug therapy; Z91.040 Latex allergy status; Z87.891 Personal history of nicotine dependence; Z98.890 Other specified postprocedural states
CPT/HCPCS: 36415; 36573; 80048; 80053; 80202; 81003; 83036; 83605; 83735; 85025; 85652; 86140; 87040; 87070; 87075; 87102; 87205; 88305; 88311; 93005; 93306; 96361; 96365; 96366; 96367; 99284

== ENCOUNTER → 2021-01-04 | Outpatient (CLI) | payer OTHER | END | disposition home or self-care (01) | LOC: LABWHC1 11:11 | PROVIDERS: ATTEND Podiatrist | DX: Z53.9 Procedure and treatment not carried out, unspecified reason (principal) ==

== ENCOUNTER → 2021-12-13 | Outpatient (CLI) | payer OTHER ==
--- NOTE | 2021-12-13 15:50 | XR ---
Right foot HISTORY: Right foot pain 3 views the right foot Correlation to prior exam 01/25/2021 Postop changes noted status post transmetatarsal amputation of the first digit. The cortical thickeni ng of the distal second metatarsal is noted, there is some associated sclerosis suggesting fracture h ealing. Some medial subluxation is noted the second metatarsal phalangeal joint. There are ossific de nsities within the soft tissues about the second digit. The third digit shows bone erosions and corti alexandr thickening at the distal third metatarsal, some associated sclerosis and soft tissue swelling is noted. There is a small plantar calcaneal spur, enthesophyte present at the insertion of the Achilles tendon as on prior. Distal fourth metatarsal also shows marginal erosions. IMPRESSION: Findings may represent the sequela of osteomyelitis. Difficult to exclude chronic osteomy elitis.
== END | disposition home or self-care (01) ==
LOC: RADXRMAIN 15:27
PROVIDERS: ATTEND Nurse Practitioner Family
DX: M79.671 Pain in right foot (principal)

== ENCOUNTER → 2023-11-26 | Outpatient (CLI) | payer OTHER ==
--- NOTE | 2023-11-26 11:44 | XR ---
EXAMINATION TYPE: XR cervical spine limited DATE OF EXAM: 11/26/2023 COMPARISON: NONE HISTORY: Pain TECHNIQUE: Four views are submitted. FINDINGS: The odontoid is intact. There are no compression deformities. The prevertebral soft tissue structur es are within normal limits. Moderate degenerative disc disease C3-C4 with posterior spondylosis. Ap pears to be fusion of the anterior margin of disc spaces C4-C5 with mild narrowing. This likely resul ts in straightening of the cervical spine with loss of the normal lordosis. Calcifications of the sof t tissues bilateral neck likely vascular related to carotid artery. IMPRESSION: 1. Degenerative disc disease C3-C4. 2. Fusion of the anterior disc space with mild narrowing of the disc C4-C5.
== END | disposition home or self-care (01) ==
LOC: RADXRMAIN 11:07
PROVIDERS: ATTEND Family Medicine
DX: M50.31 Other cervical disc degeneration, high cervical region (principal); M48.02 Spinal stenosis, cervical region
CPT/HCPCS: 72040